=== PATIENT | male | born 1955 | race Caucasian/White ===

== ENCOUNTER 2017-09-20 13:15 | Emergency (ER) | payer BC, SELFPAY ==
--- OUTSIDE RECORDS SUMMARY | 2017-09-20 13:17 | XMS REPORT ---
:1955 Author Organization eClinical[employer] Care Team Providers Name Role Phone Carrillo Eastman Provider Role Unavailable Allergies, Adverse Reactions, Alerts Substance Reaction Event Type N.K.D.A. 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 Problem Chronic hepatitis C without B18.2 Active hepatic coma Problem Psychophysiological insomnia F51.04 Active Assessment PTSD (post-traumatic stress F43.10 Active disorder) Assessment Other chronic pain G89.29 Active Assessment Tobacco abuse counseling Z71.6 Active Assessment Low back pain M54.5 Active Assessment Psychophysiological insomnia F51.04 Active Assessment Mixed hyperlipidemia E78.2 Active Medications Medication Code Code Instructions Start End Date Status Dosage System Date [place] [facility][NOTE 3] 27955524764 5-325 MG Orally Active 1 tablet every 6 hrs as needed Metformin HCl [facility][NOTE 3] 62323536328 1000 MG Orally Active 1 tablet Once a day with a meal Results No Known Results Summary Purpose eClinicalWorks Submission
--- NOTE | 2017-09-20 14:08 | RAD REPORT ---
EXAM DESCRIPTION: CT - Head Brain Wo Cont - 09/20/2017 2:02 pm CLINICAL HISTORY: HEADACHE COMPARISON: No comparisons TECHNIQUE: All CT scans are performed using dose optimization technique as appropriate and may inclu de automated exposure control or mA/KV adjustment according to patient size. FINDINGS: No intracranial hemorrhage, hydrocephalus or extra-axial fluid collection.No areas of brai n edema or evidence of midline shift. The paranasal sinuses and mastoids are clear. The calvarium is intact. IMPRESSION: No acute intracranial abnormality.
[2017-09-20 14:13] LABS: Absolute Monocytes 0.6 K/uL (0.1-1.3); Absolute Neutrophil 5.6 K/uL (1.8-8.0); Eosinophils % 2.9 % (0-4.4); Hematocrit 40.8 % (39.6-49.0); Lymphocytes % 31.9 % (15.3-44.8); MCH 31.4 pg (27.0-35.0); MCV 89.2 fL (80-100); MPV 10.4 fL (7.6-11.3); Monocytes % 6.1 % (3.3-12.3); RBC Red Blood Cell Count 4.57 M/uL (4.33-5.43)
[2017-09-20 14:15] LABS: Protime INR 0.87
--- NOTE | 2017-09-20 14:33 | RAD REPORT ---
EXAM DESCRIPTION: RAD - Chest Single View - 09/20/2017 2:27 pm CLINICAL HISTORY: CHEST PAIN Chest pain. COMPARISON: No comparisons FINDINGS: Portable technique limits examination quality. The lungs are grossly clear. The heart is normal in size. No displaced fractures. IMPRESSION: No acute intrathoracic process suspected.
[2017-09-20] MEDS ORDERED: ACETAMINOPHEN 500 MG TAB ONE (15:28)
[2017-09-20 16:07] LABS: Albumin 3.9 g/dL (3.2-5.5); Bilirubin Direct 0.1 mg/dL (0-0.2); Bilirubin Total 0.3 mg/dL (0.3-1.2); CKMB Creatine Kinase MB 1.8 ng/ml (0.3-4.0); Magnesium 1.5 mg/dL (1.8-2.5); Protein, Total 7.4 g/dL (6.0-8.3)
[2017-09-20 16:14] LABS: Urine Blood NEGATIVE (NEG); Urine Glucose TRACE (NEG); Urine Protein NEGATIVE (NEG); Urine Specific Gravity >1.030 (1.005-1.030)
[2017-09-20] MEDS ORDERED: MAGNESIUM SULFATE 1 gm IVPB 1 GM/100 ML BAG IV ONE (16:32)
[2017-09-20] MEDS ORDERED: NA CHLORIDE 0.9% 1,000 ML ONE (16:39)
--- NOTE | 2017-09-20 19:14 | ER ---
Nurse's Notes [facility] Name: Art Anand Age: 62 yrs Sex: Male : 1955 Arrival Date: 09/20/2017 Time: 13:18 Bed 2 Private MD: Diagnosis: Chest pain, unspecified;Headache;Hyperglycemia, unspecified Presentation: 09/20 13:27 Presenting complaint: Patient states: arrived by pv. c/o of elevated BS- 560 and CP rk2 with SOB off and on today. Denies CP \\T\\ this time. Pt. also c/o nausea and diarrhea. Transition of care: patient was not received from another setting of care. Onset of symptoms was September 20, 2017. Risk Assessment: Do you want to hurt yourself or someone else? Patient reports no desire to harm self or others. Initial Sepsis Screen: Does the patient meet any 2 criteria? No. Patient's initial sepsis screen is negative. Does the patient have a suspected source of infection? No. Patient's initial sepsis screen is negative. Care prior to arrival: None. 13:27 Method Of Arrival: Ambulatory rk2 13:27 Acuity: CAN 3 rk2 Triage Assessment: 13:30 General: Appears in no apparent distress. well groomed, well developed, well nourished, rk2 Behavior is calm, cooperative. Historical: - Allergies: 13:30 No Known Allergies; rk2 - PMHx: 13:30 Diabetes - NIDDM; hep c; rk2 - Immunization history:: Adult Immunizations unknown. - Social history:: Smoking status: Patient uses tobacco products, denies chronic smoking, but will smoke occasionally. - Ebola Screening: : Patient negative for fever greater than or equal to 101.5 degrees Fahrenheit, and additional compatible Ebola Virus Disease symptoms. Screenin:40 Abuse screen: Denies threats or abuse. Denies injuries from another. Nutritional sg screening: No deficits noted. Tuberculosis screening: No symptoms or risk factors identified. Never had TB. Fall Risk None identified. Assessment: 13:40 General: Appears in no apparent distress. comfortable, well groomed, well developed, sg well nourished, Behavior is calm, cooperative, appropriate for age. Pain: Complains of pain in head, chest and left arm Pain does not radiate. Quality of pain is described as aching. Neuro: Level of Consciousness is awake, alert, obeys commands, Oriented to person, place, time, situation, Cmo are equal bilaterally Moves all extremities. Gait is steady, Speech is normal, Facial symmetry appears normal, Pupils are PERRLA. Neuro: Reports headache in entire frontal area, photophobia since 0900. Cardiovascular: Heart tones S1 S2 present Capillary refill is brisk in bilateral fingers Patient's skin is warm and dry. Chest pain is described as vague, is located in anterior chest wall radiates to left arm(s). Respiratory: Airway is patent Respiratory effort is even, unlabored, Respiratory pattern is regular, symmetrical, Breath sounds are clear bilaterally. GI: Abdomen is round non-distended, obese, Bowel sounds present X 4 quads. Abd is soft and non tender X 4 quads. Reports nausea. : No signs and/or symptoms were reported regarding the genitourinary system. EENT: No signs and/or symptoms were reported regarding the EENT system. Derm: Skin is pink, warm \\T\\ dry. Musculoskeletal: No signs and/or symptoms reported regarding the musculoskeletal system. 14:30 Reassessment: Patient appears in no apparent distress at this time. Patient and/or sg family updated on plan of care and expected duration. Pain level reassessed. Patient is alert, oriented x 3, equal unlabored respirations, skin warm/dry/pink. Patient states symptoms have not improved. 15:30 Reassessment: Patient appears in no apparent distress at this time. Patient and/or sg family updated on plan of care and expected duration. Pain level reassessed. Patient is alert, oriented x 3, equal unlabored respirations, skin warm/dry/pink. pt reports headache, a 6/10 on a pain scale, pt awaiting new orders at this time, will continue to monitor Patient states symptoms have not improved. 16:30 Reassessment: Patient appears in no apparent distress at this time. Patient and/or sg family updated on plan of care and expected duration. Pain level reassessed. Patient is alert, oriented x 3, equal unlabored respirations, skin warm/dry/pink. Patient states symptoms have not improved. 17:30 Reassessment: Patient appears in no apparent distress at this time. Patient and/or sg family updated on plan of care and expected duration. Pain level reassessed. Patient is alert, oriented x 3, equal unlabored respirations, skin warm/dry/pink. pt reports continue to have a headache, will continue to monitor Patient states symptoms have not improved. 18:30 Reassessment: Patient appears in no apparent distress at this time. Patient and/or sg family updated on plan of care and expected duration. Pain level reassessed. Patient is alert, oriented x 3, equal unlabored respirations, skin warm/dry/pink. 18:30 Reassessment: pt to be d/c to home, Nasim PERSONNEL PSYCHOLOGIST ordered a " migraine cocktail." prior sg to dc to home. Vital Signs: 13:30 BP 164 / 65; Pulse 71; Resp 17; Temp 98.0; Pulse Ox 97% ; Weight 112.49 kg; rk2 14:30 BP 136 / 84; Pulse 66; Resp 20; Pulse Ox 98% on R/A; sg 16:00 BP 133 / 81; Pulse 58; Resp 16; Pulse Ox 98% on R/A; Pain 6/10; sg 17:00 BP 116 / 77; Pulse 96 MON; Resp 16 S; Temp 98.0; Pulse Ox 95% on R/A; Pain 4/10; sg 18:00 BP 116 / 75; Pulse 61 MON; Resp 18; Pulse Ox 100% on R/A; sg ED Course: 13:18 Patient arrived in ED. as 13:28 [facility] pm1 13:28 Duncan Meek MD is Attending Physician. pm1 13:29 Triage completed. rk2 13:40 Patient has correct armband on for positive identification. Bed in low position. Call sg light in reach. Side rails up X2. printing film stripper on. Pulse ox on. NIBP on. Warm blanket given. Head of bed elevated. 13:40 Arm band placed on. sg 13:55 Missed attempt(s): 22 gauge in right wrist. Bleeding controlled, band aid applied, dh3 catheter tip intact. 13:58 Juan Miguel Ibarra, RN is Primary Nurse. sg 13:58 Initial lab(s) drawn, by me, sent to lab. Missed attempt(s): 22 gauge in right hand. sg Bleeding controlled, band aid applied, catheter tip intact. 14:00 CT completed. Patient moved to CT via stretcher. Patient moved back from CT. cw1 14:01 CT Head Brain wo Cont In Process Unspecified. EDMS 14:27 X-ray completed. Portable x-ray completed in exam room. Patient tolerated procedure kp1 well. 14:28 XRAY Chest (1 view) In Process Unspecified. EDMS 14:52 Inserted saline lock: 24 gauge in right antecubital area, using aseptic technique. ss Blood collected. 18:20 No provider procedures requiring assistance completed. Repeat lab(s) drawn. by dc, sent sg to lab. Patient maintains SpO2 saturation greater than 95% on room air. 19:17 IV discontinued, intact, bleeding controlled, No redness/swelling at site. Pressure sg dressing applied. Administered Medications: 15:43 Drug: Tylenol 500 mg Route: PO; sg 16:30 Follow up: Response: No adverse reaction; Pain is unchanged, physician notified sg 16:34 Drug: Magnesium Sulfate 1 grams Route: IVPB; Infused Over: 1 hrs; Site: right sg antecubital; 19:31 Follow up: Response: No adverse reaction; IV Status: Completed infusion kr2 16:40 Drug: NS 0.9% 1000 ml Route: IV; Rate: 1000 ml; Site: right antecubital; sg 19:30 Follow up: Response: No adverse reaction; IV Status: Completed infusion kr2 19:29 Drug: TORadol 30 mg Route: IVP; Site: right antecubital; kr2 19:35 Follow up: Response: No adverse reaction kr2 19:30 Drug: Benadryl 25 mg Route: IVP; Site: right antecubital; kr2 19:35 Follow up: Response: No adverse reaction kr2 19:30 Drug: Reglan 10 mg Route: IVP; Site: right antecubital; kr2 19:35 Follow up: Response: No adverse reaction kr2 Point of Care Testing: Blood Glucose: 13:36 Blood Glucose: 190 mg/dL; sg Ranges: Outcome: 19:14 Discharge ordered by MD. pm1 19:34 Discharged to home ambulatory, with family. kr2 19:34 Condition: good 19:34 Discharge instructions given to patient, family, Instructed on discharge instructions, follow up and referral plans. Demonstrated understanding of instructions, follow-up care, medications. 19:36 Patient left the ED. kr2 Signatures: Dispatcher [employer] EDJuan Miguel Wong RN RN Brina Paz Shelby, RN RN Veronique Hall cw1 Jerry Moraes, VARNISH MAKER VARNISH MAKER pm1 MilesAubree hahn kp1 Alina Ventura 3 Shayy Solis RN RN kr2 Carie Bai RN RN rk2 Corrections: (The following items were deleted from the chart) 14:02 13:30 BP 164 / ???; Pulse 65bpm; Resp 71bpm; Pulse Ox 97%; Temp 19F; 112.49 kg; rk2 rk2 19:19 19:17 Discharged to home ambulatory, with family, sg 19:19 19:17 Condition: good sg 19:19 19:17 Discharge instructions given to patient, Instructed on discharge instructions, sg follow up and referral plans. safety practices, Demonstrated understanding of instructions, follow-up care, sg
--- NOTE | 2017-09-20 19:14 | EDPHYS ---
Physician Documentation [facility] Name: Art Anand Age: 62 yrs Sex: Male : 1955 Arrival Date: 09/20/2017 Time: 13:18 Bed 2 Private MD: ED Physician Duncan Meek HPI: 09/20 15:00 This 62 yrs old Male presents to ER via Ambulatory with complaints of Chest pm1 Pain, Headache, High Blood Sugar. 15:00 Patient with complaints of chest pain, headache, and hyperglycemia. Patient with onset pm1 of chest pain and headache at 0900 this AM. Patient reports that headache is his current main complaint. It has been constant since 0900. Patient with complaints of chest pain that lasts for 1-2 seconds that comes and goes. Patient without any chest pain now. Patient had high blood sugar yesterday and today and he treats his diabetes with metformin. He had a high blood sugar level yesterday that was in the 500 range so he took extra of his metformin. Patient normally takes 1000 mg BID. Patient took extra 1000 mg yesterday and today. Historical: - Allergies: 13:30 No Known Allergies; rk2 - PMHx: 13:30 Diabetes - NIDDM; hep c; rk2 - Immunization history:: Adult Immunizations unknown. - Social history:: Smoking status: Patient uses tobacco products, denies chronic smoking, but will smoke occasionally. - Ebola Screening: : Patient negative for fever greater than or equal to 101.5 degrees Fahrenheit, and additional compatible Ebola Virus Disease symptoms. ROS: 15:00 Constitutional: Negative for fever, chills, and weight loss, Eyes: Negative for injury, pm1 pain, redness, and discharge, ENT: Negative for injury, pain, and discharge, Neck: Negative for injury, pain, and swelling, Respiratory: Negative for shortness of breath, cough, wheezing, and pleuritic chest pain. 15:00 Abdomen/GI: Negative for abdominal pain, nausea, vomiting, diarrhea, and constipation, Back: Negative for injury and pain, : Negative for injury, bleeding, discharge, and swelling, MS/Extremity: Negative for injury and deformity, Skin: Negative for injury, rash, and discoloration. 15:00 Cardiovascular: Positive for chest pain, Negative for edema, orthopnea, palpitations. 15:00 Neuro: Positive for headache, Negative for altered mental status, dizziness, numbness, seizure activity, tingling, visual changes, weakness. Exam: 15:00 Constitutional: This is a well developed, well nourished patient who is awake, alert, pm1 and in no acute distress. Head/Face: Normocephalic, atraumatic. Eyes: Pupils equal round and reactive to light, extra-ocular motions intact. Lids and lashes normal. Conjunctiva and sclera are non-icteric and not injected. Cornea within normal limits. Periorbital areas with no swelling, redness, or edema. ENT: Nares patent. No nasal discharge, no septal abnormalities noted. Tympanic membranes are normal and external auditory canals are clear. Oropharynx with no redness, swelling, or masses, exudates, or evidence of obstruction, uvula midline. Mucous membranes moist. Neck: Trachea midline, no thyromegaly or masses palpated, and no cervical lymphadenopathy. Supple, full range of motion without nuchal rigidity, or vertebral point tenderness. No Meningismus. Chest/axilla: Normal chest wall appearance and motion. Nontender with no deformity. No lesions are appreciated. Cardiovascular: Regular rate and rhythm with a normal S1 and S2. No gallops, murmurs, or rubs. Normal PMI, no JVD. No pulse deficits. Respiratory: Lungs have equal breath sounds bilaterally, clear to auscultation and percussion. No rales, rhonchi or wheezes noted. No increased work of breathing, no retractions or nasal flaring. Abdomen/GI: Soft, non-tender, with normal bowel sounds. No distension or tympany. No guarding or rebound. No evidence of tenderness throughout. Back: No spinal tenderness. No costovertebral tenderness. Full range of motion. Skin: Warm, dry with normal turgor. Normal color with no rashes, no lesions, and no evidence of cellulitis. MS/ Extremity: Pulses equal, no cyanosis. Neurovascular intact. Full, normal range of motion. 15:00 Neuro: Orientation: is normal, Cranial nerves: CN II- XII are normal as tested, Motor: moves all fours, strength is normal, strength is 5/5 in all extremities, Sensation: is normal, no obvious gross deficits, Gait: is steady, at a normal pace, without difficulty. Vital Signs: 13:30 BP 164 / 65; Pulse 71; Resp 17; Temp 98.0; Pulse Ox 97% ; Weight 112.49 kg; rk2 14:30 BP 136 / 84; Pulse 66; Resp 20; Pulse Ox 98% on R/A; sg 16:00 BP 133 / 81; Pulse 58; Resp 16; Pulse Ox 98% on R/A; Pain 6/10; sg 17:00 BP 116 / 77; Pulse 96 MON; Resp 16 S; Temp 98.0; Pulse Ox 95% on R/A; Pain 4/10; sg 18:00 BP 116 / 75; Pulse 61 MON; Resp 18; Pulse Ox 100% on R/A; sg MDM: 13:28 Patient medically screened. pm1 19:13 Data reviewed: vital signs. Data interpreted: Pulse oximetry: on room air is 100 %. pm1 Interpretation: normal. Counseling: I had a detailed discussion with the patient and/or guardian regarding: the historical points, exam findings, and any diagnostic results supporting the discharge/admit diagnosis, lab results, radiology results, the need for outpatient follow up, to return to the emergency department if symptoms worsen or persist or if there are any questions or concerns that arise at home. 09/20 13:37 Order name: Basic Metabolic Panel; Complete Time: 16:25 pm09/20 13:37 Order name: BNP; Complete Time: 15:02 pm09/20 13:37 Order name: CBC with Diff; Complete Time: 14:16 pm09/20 13:37 Order name: Ckmb; Complete Time: 16:25 pm09/20 13:37 Order name: CPK; Complete Time: 16:25 pm09/20 13:37 Order name: LFT's; Complete Time: 16:25 pm09/20 13:37 Order name: Magnesium; Complete Time: 16:25 pm09/20 13:37 Order name: PT-INR; Complete Time: 14:20 pm09/20 13:37 Order name: Ptt, Activated; Complete Time: 14:20 pm09/20 13:37 Order name: Troponin (emerg Dept Use Only); Complete Time: 14:41 pm09/20 13:37 Order name: XRAY Chest (1 view); Complete Time: 14:41 pm09/20 13:37 Order name: CT Head Brain wo Cont; Complete Time: 14:16 pm1 09/20 15:49 Order name: Urine Dipstick--Ancillary (enter results); Complete Time: 16:25 em1 09/20 17:52 Order name: Troponin (emerg Dept Use Only); Complete Time: 18:58 pm1 09/20 13:37 Order name: EKG; Complete Time: 13:37 pm1 09/20 13:37 Order name: Cardiac monitoring; Complete Time: 14:52 pm1 09/20 13:37 Order name: EKG - Nurse/Tech; Complete Time: 14:52 pm1 09/20 13:37 Order name: IV Saline Lock; Complete Time: 14:52 pm1 09/20 13:37 Order name: Labs collected and sent; Complete Time: 14:52 pm1 09/20 13:37 Order name: O2 Per Protocol; Complete Time: 14:52 pm1 09/20 13:37 Order name: O2 Sat Monitoring; Complete Time: 14:52 pm1 09/20 13:37 Order name: Urine Dipstick-Ancillary (obtain specimen); Complete Time: 15:36 pm1 Administered Medications: 15:43 Drug: Tylenol 500 mg Route: PO; sg 16:30 Follow up: Response: No adverse reaction; Pain is unchanged, physician notified sg 16:34 Drug: Magnesium Sulfate 1 grams Route: IVPB; Infused Over: 1 hrs; Site: right sg antecubital; 19:31 Follow up: Response: No adverse reaction; IV Status: Completed infusion kr2 16:40 Drug: NS 0.9% 1000 ml Route: IV; Rate: 1000 ml; Site: right antecubital; sg 19:30 Follow up: Response: No adverse reaction; IV Status: Completed infusion kr2 19:29 Drug: TORadol 30 mg Route: IVP; Site: right antecubital; kr2 19:35 Follow up: Response: No adverse reaction kr2 19:30 Drug: Benadryl 25 mg Route: IVP; Site: right antecubital; kr2 19:35 Follow up: Response: No adverse reaction kr2 19:30 Drug: Reglan 10 mg Route: IVP; Site: right antecubital; kr2 19:35 Follow up: Response: No adverse reaction kr2 Point of Care Testing: Blood Glucose: 13:36 Blood Glucose: 190 mg/dL; sg Ranges: Critical Glucose Levels:Adult <50 mg/dl or >400 mg/dl <40 mg/dl or >180 mg/dl Disposition: 09/21 13:05 Co-signature as Attending Physician, Duncan Meek MD. Disposition: 09/20/17 19:14 Discharged to Home. Impression: Chest pain, unspecified, Headache, Hyperglycemia, unspecified. - Condition is Stable. - Discharge Instructions: Nonspecific Chest Pain, General Headache Without Cause. - Medication Reconciliation Form, Thank You Letter form. - Follow up: Emergency Department; When: As needed; Reason: Worsening of condition. Follow up: Private Physician; When: 2 - 3 days; Reason: Recheck today's complaints, Continuance of care, Re-evaluation by your physician. - Problem is new. - Symptoms have improved. Signatures: Dispatcher [employer] EDMS Juan Miguel Ibarra RN RN sg Jerry Moraes, RECEIVER SETTER RECEIVER SETTER pm1 Duncan Meek MD MD Shayy Solis RN RN kr2 Carie Bai RN RN rk2 Corrections: (The following items were deleted from the chart) 09/20 19:14 19:14 09/20/2017 19:14 Discharged to Home. Impression: Chest pain, unspecified. pm1 Condition is Stable. Forms are Medication Reconciliation Form, Thank You Letter, Antibiotic Education, Prescription Opioid Use. Follow up: Emergency Department; When: As needed; Reason: Worsening of condition. Follow up: Private Physician; When: 2 - 3 days; Reason: Recheck today's complaints, Continuance of care, Re-evaluation by your physician. Problem is new. Symptoms have improved. pm1 19:20 19:14 09/20/2017 19:14 Discharged to Home. Impression: Chest pain, unspecified; pm1 Headache. Condition is Stable. Discharge Instructions: Nonspecific Chest Pain, General Headache Without Cause. Forms are Medication Reconciliation Form, Thank You Letter. Follow up: Emergency Department; When: As needed; Reason: Worsening of condition. Follow up: Private Physician; When: 2 - 3 days; Reason: Recheck today's complaints, Continuance of care, Re-evaluation by your physician. Problem is new. Symptoms have improved. pm1 19:36 19:20 09/20/2017 19:14 Discharged to Home. Impression: Chest pain, unspecified; kr2 Headache; Hyperglycemia, unspecified. Condition is Stable. Discharge Instructions: Nonspecific Chest Pain, General Headache Without Cause. Forms are Medication Reconciliation Form, Thank You Letter. Follow up: Emergency Department; When: As needed; Reason: Worsening of condition. Follow up: Private Physician; When: 2 - 3 days; Reason: Recheck today's complaints, Continuance of care, Re-evaluation by your physician. Problem is new. Symptoms have improved. pm1
[2017-09-20] MEDS ORDERED: KETOROLAC 30 MG/ML INJ ONE (19:26)
[2017-09-20] MEDS ORDERED: METOCLOPRAMIDE 10 MG/2mL INJ ONE (19:26)
[2017-09-20] MEDS ORDERED: DIPHENHYDRAMINE 50 MG/ML VIAL ONE (19:26)
--- NOTE | 2017-09-21 06:14 | EKG ---
Test Date: 2017-09-20 Test Time: 13:32:26 [employer]: SWG MEASUREMENT RESULTS: Intervals: Rate: 69 MA: 190 QRSD: 154 QT: 434 QTc: 465 [place]: P: 56 MA: 190 QRS: -15 T: 36 INTERPRETIVE STATEMENTS: Normal sinus rhythm Right bundle branch block Abnormal ECG No previous ECG available for comparison Electronically Signed On 09-21-17 06:14:12 CDT by Cheng Valladares
== END 2017-09-20 19:36 | disposition home or self-care (01) ==
LOC: ER 13:15
DX: R51 Headache (principal); E11.65 Type 2 diabetes mellitus with hyperglycemia; B19.20 Unspecified viral hepatitis C without hepatic coma; Z72.0 Tobacco use
CPT/HCPCS: 36415; 70450; 71045; 80048; 80076; 81003; 82550; 82553; 82962; 83735; 83880; 84484; 85025; 85610; 85730; 93005; 96361; 96365; 96366; 96375; 99285; J2765; J3475; J7030

== ENCOUNTER 2017-10-19 17:18 | Emergency (ER) | payer BC ==
--- OUTSIDE RECORDS SUMMARY | 2017-10-19 17:21 | XMS REPORT | Continuity of Care Document ---
:1955 Author Organization Interface Problems Problem Status Onset Classification Date Comments Source Date Reported OTHER Active 04/13/19 The 17 [place] HYPERGLYCEMIA, Active 04/13/19 The DEHYDRATION [address] [place] [address] HIGH BLOOD SUGAR Active 02/05/20 The 16 [place] Discharge 02/05/20 02/08/2016 The Diagnosis: [address] [place] [address] Hyperglycemia Diabetes Resolved Problem 04/17/2016 Eunice Carrier of Resolved Problem 04/17/2016 The hepatitis B [place] HYPERGLYCEMIA, Active The UNSPECIFIED [place] DEHYDRATION Active Eunice Medications Medication Details Route Status Patient Ordering Order Source Instructions Provider Date Metformin 500 mg=1 tab, Active The hydrochloride PO, BID, # 28 2016 [place] 500 MG Oral tab, 0 Tablet Refill(s) 3 ML insulin 14 unit, SUB-Q, Active The detemir 100 BID, # 3 mL, 0 2016 [place] UNT/ML Prefilled Refill(s) Syringe [Levemir] tramadol 50 mg=1 tab, Active The hydrochloride 50 PO, Q6H, PRN 2016 [place] MG Oral Tablet Pain Score 4-6, X 3 day, # 12 tab, 0 Refill(s) potassium 40 mEq, 2 tab, Inactive The chloride Route: PO, Drug 2016 [place] form: ERTAB, ONCE, Dosing Weight 105.455, kg, Start date: 04/14/16 13:11:00 [employer], Stop date: 04/14/16 13:11:00 CSTNotes: (Same as: K-Dur 20) "Do Not Crush" With food and full glass of water Dilaudid 0.5 mg, 0.25 Inactive The mL, Route: IVP, 2016 [place] Drug form: INJ, Q4H, Dosing Weight 105.455, kg, PRN Pain Score 7-10, Start date: 04/14/16 12:55:00 [employer], Duration: 30 day, Stop date: 05/14/16 12:54:00 CSTNotes: Same as Dilaudid Pneumovax 23 0.5 mL, Route: Inactive The IM, Drug Form: 2016lands INJ, Daily, Start date: 04/14/16 10:06:00 [employer], Duration: 1 doses or times, Stop date: 04/14/16 10:06:00 CSTNotes: (Same as: Pneumovax 23) Refrigerate influenza virus 0.5 mL, Route: Inactive The vaccine, IM, Drug Form: 2016 [place] inactivated SUSP, Daily, Start date: 04/14/16 10:06:00 [employer], Duration: 1 doses or times, Stop date: 04/14/16 10:06:00 CSTNotes: (Same as: Fluzone Quadrivalent, Fluarix Quadrivalent) For 3 years of age and older (0.5 mL IM) Shake well before use pneumococcal 0.5 mL, Route: Inactive The capsular IM, Drug Form: 2016 [place] polysaccharide INJ, Daily, type 1 vaccine / Start date: pneumococcal 04/14/16 capsular 9:00:00 [employer], polysaccharide Duration: 1 type 10A vaccine doses or times, / pneumococcal Stop date: capsular 04/14/16 polysaccharide 9:00:00 type 11A vaccine CSTNotes: (Same / pneumococcal as: Pneumovax capsular 23) polysaccharide Refrigerate type 12F vaccine / pneumococcal capsular polysacchar influenza virus 0.5 mL, Route: Inactive The vaccine, IM, Drug Form: 2016 [place] inactivated SUSP, Daily, Start date: 04/14/16 9:00:00 [employer], Duration: 1 doses or times, Stop date: 04/14/16 9:00:00 CSTNotes: (Same as: Fluzone Quadrivalent, Fluarix Quadrivalent) For 3 years of age and older (0.5 mL IM) Shake well before use potassium 40 mEq, 2 tab, Inactive The chloride Route: PO, Drug 2016 [place] form: ERTAB, ONCE, Dosing Weight 105.455, kg, Start date: 04/14/16 6:00:00 [employer], Stop date: 04/14/16 6:00:00 CSTNotes: (Same as: K-Dur 20) "Do Not Crush" With food and full glass of water Ofirmev 1,000 mg, 100 No Longer The mL, Route: IV, Active 2016 [place] Drug form: INJ, ONCE, PRN Pain Score 4-6, Start date: 04/13/16 23:29:00 CSTNotes: Infuse over 15 minutes Do not exceed 4gm/day of acetaminophen MEDICATION WASTE Product Size: 1000 mg Product Wasted: ___ mg NovoLOG FlexPen 14 unit, 0.14 No Longer The mL, Route: Active 2016 [facility] Drug form: SOLN, ONCE, Dosing Weight 105.455, kg, Start date: 04/13/16 22:00:00 [employer], Stop date: 04/13/16 22:00:00 CSTNotes: Roll in palms of hands gently; Do not shake vigorously. (Same as: NovoLOG) "single patient use only" WASTE: F/P - Black; E - Municipal Trash Bin Stable for 28 days at room temperature. Expires in days from D ate Ofirmev 1,000 mg, Inactive The Route: IVP, 2016lands ONCE, Dosing Weight 105.455, kg, PRN Pain Score 4-6, Start date: 04/13/16 21:51:00 [employer] Lorazepam 0.5 mg, 1 tab, No Longer The Route: PO, Drug Active 2016 [place] form: TAB, ONCE, Dosing Weight 105.455, kg, PRN as needed for anxiety, Start date: 04/13/16 21:44:00 CSTNotes: (Same as: Ativan) Insulin, Aspart, 2 unit, 0.02 No Longer The Human mL, Route: Active 2016 [place] BLOVES-, Drug form: SOLN, Bedtime, Dosing Weight 105.455, kg, PRN Blood Glucose Results, Start date: 04/13/16 21:05:00 [employer], Duration: 30 day, Stop date: 05/13/16 21:04:00 CSTNotes: Roll in palms of hands gently; Do not shake vigorously. (Same as: NovoLOG) "single patient use only" WASTE: F/P - Black; E - Municipal Trash Bin Stable for 28 days at room temperature. Expires in days from D ate Dextrose 50% 12.5 gm, 25 mL, No Longer The Syringe Route: IVP, Active 2016 [place] Drug Form: INJ, Dosing Weight 105.455, kg, PRN, PRN Blood Glucose Results, Start date: 04/13/16 21:05:00 [employer], Duration: 30 day, Stop date: 05/13/16 21:04:00 [employer] Glucagon 1 mg, Route: No Longer The IM, Drug form: Active 2016 [place] PDR/INJ, PRN, Dosing Weight 105.455, kg, PRN Blood Glucose Results, Start date: 04/13/16 21:05:00 [employer], Duration: 30 day, Stop date: 05/13/16 21:04:00 [employer] Acetaminophen 650 mg, 2 tab, No Longer The Route: PO, Drug Active 2016 [place] form: TAB, Q6H, Dosing Weight 105.455, kg, PRN Pain 1-3/Temp > 100.4 F, Start date: 04/13/16 21:04:00 [employer], Duration: 30 day, Stop date: 05/13/16 21:03:00 CSTNotes: Do not exceed 4 gm/day. (Same as: Tylenol) Tramadol 50 mg, 1 tab, No Longer The Route: PO, Drug Active 2016 [place] form: TAB, Q4H, Dosing Weight 105.455, kg, PRN Pain Score 4-6, Start date: 04/13/16 21:04:00 [employer], Duration: 30 day, Stop date: 05/13/16 21:03:00 CSTNotes: Not to exceed 400mg/day. (Same As: Ultram) insulin detemir 10 unit, 0.1 No Longer The mL, Route: Active 2016 [place] SUB-Q, Drug form: INJ, Q12H, Dosing Weight 105.455, kg, Start date: 04/13/16 21:00:00 [employer], Duration: 30 day, Stop date: 05/13/16 9:00:00 CSTNotes: Same as Levemir Do not hold insulin without contacting prescriber WASTE: F/P - Black; E - Municipal Trash Bin "single patient use only" sodium chloride 1,000 mL, Rate: No Longer The 0.9% 1000 ml INJ 250 ml/hr, Active 2016 [place] 1,000 mL Infuse over: 4 hr, Route: IV, Dosing Weight 105.455 kg, Total Volume: 1,000, Start date: 04/13/16 19:39:00 [employer], Duration: 30 day, Stop date: 05/13/16 19:38:00 [employer] Insulin, Aspart, 6 unit, 0.06 No Longer The Human mL, Route: Active 2016 [place] SUB-Q, Drug form: SOLN, TID-Before Meals, Dosing Weight 105.455, kg, PRN Blood Glucose Results, Start date: 04/13/16 19:38:00 [employer], Duration: 30 day, Stop date: 05/13/16 19:37:00 CSTNotes: Roll in palms of hands gently; Do not shake vigorously. (Same as: NovoLOG) "single patient use only" WASTE: F/P - Black; E - Municipal Trash Bin Stable for 28 days at room temperature. Expires in days from D ate Glucagon 1 mg, Route: No Longer The IM, Drug form: Active 2016 [place] PDR/INJ, PRN, Dosing Weight 105.455, kg, PRN Blood Glucose Results, Start date: 04/13/16 19:38:00 [employer], Duration: 30 day, Stop date: 05/13/16 19:37:00 [employer] Dextrose 50% 25 gm, 50 mL, No Longer The Syringe Route: IVP, Active 2016 [place] Drug Form: INJ, Dosing Weight 105.455, kg, PRN, PRN Blood Glucose Results, Start date: 04/13/16 19:38:00 [employer], Duration: 30 day, Stop date: 05/13/16 19:37:00 [employer] insulin regular 10 unit, 0.1 Inactive The 100 units/mL mL, Route: 2016 [place] human SUB-Q, Drug recombinant form: SOLN, ONCE, Dosing Weight 105.455, kg, Priority: STAT, Start date: 04/13/16 19:24:00 [employer], Stop date: 04/13/16 19:24:00 CSTNotes: (Same as: Humulin R) Roll in palms of hands gently; Do not shake vigorously. "single patient use only" (Restricted to patients requiring a dose > 60 units) WASTE: F/P - Black; E - Municipal Trash Bin Stable for 28 days at room temperature Expires in days from D ate Sodium Chloride 1,000 mL, Rate: No Longer The 0.154 MEQ/ML 250 ml/hr, Active 2016 [place] Injectable Infuse over: 4 Solution hr, Route: IV, Dosing Weight 105.455 kg, Total Volume: 1,000, Start date: 04/13/16 19:12:00 [employer], Duration: 30 day, Stop date: 05/13/16 19:11:00 [employer] Insulin regular 10 unit, 0.1 Inactive The mL, Route: 2016 [place] SUB-Q, Drug form: INJ, ONCE, Dosing Weight 105.455, kg, Priority: STAT, Start date: 04/13/16 18:50:00 [employer], Stop date: 04/13/16 18:50:00 CSTNotes: (Same as: Humulin R and NovoLIN R) WASTE: F/P - Black; E - Municipal Trash Bin (Do not shake) Ketorolac 30 mg, Route: Inactive The IVP, Drug form: 2016 [place] INJ, ONCE, Dosing Weight 105.455, kg, Priority: STAT, Start date: 04/13/16 18:04:00 [employer], Stop date: 04/13/16 18:04:00 [employer] Acetaminophen 975 mg, Route: Inactive The PO, ONCE, 2016 [place] Dosing Weight 105.455, kg, Priority: STAT, Start date: 04/13/16 18:04:00 [employer], Stop date: 04/13/16 18:04:00 [employer] Compazine 10 mg, Route: Inactive The IV, ONCE, 2016 [place] Dosing Weight 105.455, kg, Start date: 04/13/16 17:23:00 [employer], Stop date: 04/13/16 17:23:00 [employer] Sodium Chloride 1,000 mL, Inactive The 0.154 MEQ/ML Infuse Over: 1 2016 [place] Injectable hr, Route: IV, Solution ONCE, Priority: STAT, Dosing Weight 105.455 kg, Start date: 04/13/16 17:22:00 [employer], Duration: 1 doses or times, Stop date: 04/13/16 17:22:00 [employer] Glucagon 1 mg, Route: No Longer The IM, Drug form: Active 2016 [place] PDR/INJ, PRN, Dosing Weight 105.455, kg, PRN Blood Glucose Results, Start date: 04/13/16 16:16:00 [employer], Duration: 30 day, Stop date: 05/13/16 16:15:00 [employer] Dextrose 50% 25 gm, 50 mL, No Longer The Syringe Route: IVP, Active 2016 [place] Drug Form: INJ, Dosing Weight 105.455, kg, PRN, PRN Blood Glucose Results, Start date: 04/13/16 16:16:00 [employer], Duration: 30 day, Stop date: 05/13/16 16:15:00 [employer] Sodium Chloride 1,000 mL, 1000 Inactive The 0.154 MEQ/ML ml/hr, Infuse 2016 [place] Injectable Over: 1 hr, Solution Route: IV, 1,000, Drug form: INJ, ONCE, Priority: STAT, Dosing Weight 105.455 kg, Start date: 04/13/16 16:16:00 [employer], Duration: 1 doses or times, Stop date: 04/13/16 16:16:00 [employer] Saline Flush 10 mL, Route: No Longer The 0.9% IVP, Drug Form: Active 2016 [place] INJ, Dosing Weight 105.455, kg, PRN, PRN Line Flush, Start date: 04/13/16 16:16:00 [employer], Duration: 30 day, Stop date: 05/13/16 16:15:00 CSTNotes: Same as: BD Posiflush Sterile Sodium Chloride 1,000 mL, 2,000 Inactive The 0.154 MEQ/ML ml/hr, Infuse 2015 [place] Injectable Over: 30 Solution minutes, Route: IV, 1,000, Drug form: INJ, ONCE, Priority: STAT, Dosing Weight 112.273 kg, Start date: 02/05/16 16:25:00 CDT, Duration: 1 doses or times, Stop date: 02/05/16 16:25:00 CDT Insulin regular 10 unit, 0.1 Inactive The mL, Route: 2015 [place] SUB-Q, Drug form: INJ, ONCE, Dosing Weight 112.273, kg, Priority: STAT, Start date: 02/05/16 16:25:00 CDT, Stop date: 02/05/16 16:25:00 CDTNotes: (Same as: Humulin R and NovoLIN R) WASTE: F/P - Black; E - Municipal Trash Bin (Do not shake) Dextrose 50% 25 gm, 50 mL, Inactive The Syringe Route: IVP, 2015 [place] Drug Form: INJ, Dosing Weight 113.636, kg, PRN, PRN Blood Glucose Results, Start date: 02/05/16 11:12:00 CDT, Duration: 30 day, Stop date: 03/06/16 10:11:00 [employer] Glucagon 1 mg, Route: Inactive The IM, Drug form: 2015 [place] PDR/INJ, PRN, Dosing Weight 113.636, kg, PRN Blood Glucose Results, Start date: 02/05/16 11:12:00 CDT, Duration: 30 day, Stop date: 03/06/16 10:11:00 [employer] Saline Flush 10 mL, Route: Inactive The 0.9% IVP, Drug Form: 2015 [place] INJ, Dosing Weight 113.636, kg, PRN, PRN Line Flush, Start date: 02/05/16 11:12:00 CDT, Duration: 30 day, Stop date: 03/06/16 10:11:00 CSTNotes: preservative free. Sodium Chloride 1,000 mL, 2000 Inactive The 0.154 MEQ/ML ml/hr, Infuse [address] [place] [address] Injectable Over: 30 Solution minutes, Route: IV, 1,000, Drug form: INJ, ONCE, Priority: STAT, Dosing Weight 113.636 kg, Start date: 02/05/16 11:12:00 CDT, Duration: 1 doses or times, Stop date: 02/05/16 11:12:00 CDT Allergies, Adverse Reactions, Alerts Substance Category Reaction Severity Reaction Status Date Comments Source type Reported NKDA Assertion Drug Active The allergy [place] Immunizations Immunization Date Site Status Last Comments Source Given Updated pneumococcal Left completed Paulo The 23-valent 7 Deltoid [place] vaccine influenza virus Right completed Paulo The vaccine, 7 Deltoid [place] inactivated pneumococcal Not Given The 23-valent 7 [place] vaccine influenza virus Not Given The vaccine, 7 [place] inactivated Results Order Name Results Value Reference Date Interpretation Comments Source Range CARDIAC Troponin-I null 0.00 - 04/14 The ENZYMES 0.40 [place] CHEM PANEL eGFR 105 04/14 Result Comment: The eGFR is calculated using the CKD-EPI formula. In most young, healthy individuals the eGFR will be >90 mL/ min/1.73m2. The eGFR declines with age. An eGFR of 60-89 may be normal in The mL/min/1.7 some populations, particularly the elderly, for whom the CKD-EPI formula has not been extensively validated. Use of the eGFR is not recommended in the following populations: [address] Individuals with unstable creatinine concentrations, including patients and those with serious co-morbid conditions. Patients with extremes in muscle mass or diet. The data above are obtained from the National Kidney Disease Education Program (NKDEP) which additionally recommends that when the eGFR is used in patients with extremes of body mass index for purposes of drug dosing, the eGFR should be multiplied by the estimated BMI. CHEM PANEL Creatinine 0.68 mg/dL 0.50 - 04/14 The Lvl 1.40 [place] CHEM PANEL Sodium Lvl 139 meq/L 135 - 145 04/14 [place] CHEM PANEL Potassium 3.4 meq/L 3.5 - 5.1 04/14 The Lvl [place] CHEM PANEL Chloride Lvl 106 meq/L 95 - 109 04/14 [place] CHEM PANEL CO2 26 meq/L 24 - 32 04/14 [place] CHEM PANEL Calcium Lvl 7.8 mg/dL 8.5 - 10.5 04/14 [place] CHEM PANEL AGAP 10.4 meq/L 10.0 - 04/14 The 20.0 [place] CHEM PANEL Glucose Lvl 199 mg/dL 70 - 99 04/14 Result Comment: [place] reviewed all results 04/14/2016 01:50 sv CHEM PANEL BUN 11 mg/dL 7 - 22 04/14 The [place] CHEM PANEL Phosphorus 3.0 mg/dL 2.5 - 4.5 04/14 The [place] CHEM PANEL Magnesium 1.8 mg/dL 1.8 - 2.4 04/14 The Lvl [place] HEMATOLOGY Eosinophils 3.0 % 0.0 - 4.0 04/14 The [place] HEMATOLOGY Lymphocytes 43.4 % 20.0 - 04/14 The 40.0 [place] HEMATOLOGY Monocytes 6.0 % 2.0 - 12.0 04/14 The [place] HEMATOLOGY Basophils 1.6 % 0.0 - 1.0 04/14 The [place] HEMATOLOGY Monocytes # 0.5 K/CMM 0.0 - 0.8 04/14 The [place] HEMATOLOGY Segs-Bands # 3.5 K/CMM 1.5 - 8.1 04/14 The [place] HEMATOLOGY Lymphocytes 3.3 K/CMM 1.0 - 5.5 04/14 The [place] HEMATOLOGY Basophils # 0.1 K/CMM 0.0 - 0.2 04/14 The [place] HEMATOLOGY Eosinophils 0.2 K/CMM 0.0 - 0.5 04/14 The [place] HEMATOLOGY RBC Morph Normal 04/14 [place] (04/14/16 1:17 AM) HEMATOLOGY Plt Morph Clumped 04/14 [place] (04/14/16 1:17 AM) HEMATOLOGY Segs 46.0 % 45.0 - 04/14 The 75.0 [place] HEMATOLOGY WBC 7.6 K/CMM 3.7 - 10.4 04/14 The [place] HEMATOLOGY RBC 4.33 M/CMM 4.70 - 04/14 The 6.10 [place] HEMATOLOGY MCV 88.8 fL 80.0 - 04/14 The 94.0 [place] HEMATOLOGY MCH 30.6 pg 27.0 - 04/14 The 31.0 [place] HEMATOLOGY MCHC 34.5 g/dL 32.0 - 04/14 The 36.0 [place] HEMATOLOGY MPV 10.4 fL 7.4 - 10.4 04/14 The [place] HEMATOLOGY RDW 12.8 % 11.5 - 04/14 The 14.5 [place] HEMATOLOGY Platelet 152 K/CMM 133 - 450 04/14 The [place] HEMATOLOGY Hgb 13.3 g/dL 14.0 - 04/14 The 18.0 [place] HEMATOLOGY Hct 38.4 % 42.0 - 04/14 The 54.0 [place] SPECIAL Hgb A1C 10.7 % <=5.6 % 04/14 The CHEMISTRY [place] CARDIAC Troponin-I null 0.00 - 04/14 The ENZYMES 0.40 [place] CARDIAC Troponin-I null 0.00 - 04/14 The ENZYMES 0. [place] CHEM PANEL eGFR 88 04/14 Result Comment: The eGFR is calculated using the CKD-EPI formula. In most young, healthy individuals the eGFR will be >90 mL/ min/1.73m2. The eGFR declines with age. An eGFR of 60-89 may be normal in The mL/min/1. some populations, particularly the elderly, for whom the CKD-EPI formula has not been extensively validated. Use of the eGFR is not recommended in the following populations: [place] 3m2 Individuals with unstable creatinine concentrations, including patients and those with serious co-morbid conditions. Patients with extremes in muscle mass or diet. The data above are obtained from the National Kidney Disease Education Program (NKDEP) which additionally recommends that when the eGFR is used in patients with extremes of body mass index for purposes of drug dosing, the eGFR should be multiplied by the estimated BMI. CHEM PANEL Bili Total 0.2 mg/dL 0.2 - 1.3 04/14 [place] CHEM PANEL Alk Phos 83 unit/L 39 - 136 04/14 The [place] CHEM PANEL Creatinine 0.94 mg/dL 0.50 - 04/14 The Lvl 1.40 [place] CHEM PANEL Sodium Lvl 133 meq/L 135 - 145 04/14 The [place] CHEM PANEL BUN 13 mg/dL 7 - 22 04/14 The [place] CHEM PANEL Potassium 4.3 meq/L 3.5 - 5.1 04/14 MH The Lvl [place] CHEM PANEL Glucose Lvl 400 mg/dL 70 - 99 04/14 Result The Comment: [place] Critical Result(s) called to [place] at 04/13/2016 18:49 by Jacinto Mann [place]. Read back OK. CHEM PANEL Chloride Lvl 100 meq/L 95 - 109 04/14 The [place] CHEM PANEL A/G Ratio 1.1 0.7 - 1.6 04/14 The [place] CHEM PANEL Albumin Lvl 3.7 g/dL 3.5 - 5.0 04/14 The [place] CHEM PANEL ALT 34 unit/L 0 - 65 04/14 The [place] CHEM PANEL Globulin 3.5 g/dL 2.7 - 4.2 04/14 The [place] CHEM PANEL AGAP 12.3 meq/L 10.0 - 04/14 The 20.0 [place] CHEM PANEL Calcium Lvl 8.9 mg/dL 8.5 - 10.5 04/14 The [place] CHEM PANEL CO2 25 meq/L 24 - 32 04/14 The [place] CHEM PANEL AST 11 unit/L 0 - 37 04/14 The [place] CHEM PANEL Total 7.2 g/dL 6.4 - 8.4 04/14 The Protein [place] CHEM PANEL B/C Ratio 14 6 - 25 04/14 The [place] CHEM PANEL Ketone 0.14 <=0.27 04/14 The Quantitative mmol/L mmol/L [place] HEMATOLOGY Segs-Bands # 4.8 K/CMM 1.5 - 8.1 04/14 The [place] HEMATOLOGY Lymphocytes 3.2 K/CMM 1.0 - 5.5 04/14 The # [place] HEMATOLOGY Monocytes # 0.5 K/CMM 0.0 - 0.8 04/14 The [place] HEMATOLOGY Eosinophils 0.2 K/CMM 0.0 - 0.5 04/14 The # [place] HEMATOLOGY Basophils 1.0 % 0.0 - 1.0 04/14 The [place] HEMATOLOGY Basophils # 0.1 K/CMM 0.0 - 0.2 04/14 The [place] HEMATOLOGY Segs 55.1 % 45.0 - 04/14 The 75.0 [place] HEMATOLOGY Lymphocytes 36.5 % 20.0 - 04/14 The 40.0 [place] HEMATOLOGY Monocytes 5.4 % 2.0 - 12.0 04/14 The [place] HEMATOLOGY Eosinophils 2.0 % 0.0 - 4.0 04/14 The [place] HEMATOLOGY PT 11.0 s 12.0 - 04/14 The 14. [place] HEMATOLOGY INR 0.78 0.85 - 04/14 The 1. [place] HEMATOLOGY MPV 10.0 fL 7.4 - 10.4 04/14 [place] HEMATOLOGY RDW 13.5 % 11.5 - 04/14 The 14 [place] HEMATOLOGY Platelet 183 K/CMM 133 - 450 04/14 [place] HEMATOLOGY Hct 41.2 % 42.0 - 04/14 The 54.0 [place] HEMATOLOGY Hgb 14.1 g/dL 14.0 - 04/14 The 18.0 [place] HEMATOLOGY RBC 4.64 M/CMM 4.70 - 04/14 The 6.10 [place] HEMATOLOGY WBC 8.6 K/CMM 3.7 - 10.4 04/14 [place] HEMATOLOGY MCHC 34.3 g/dL 32.0 - 04/14 The 36.0 [place] HEMATOLOGY MCH 30.4 pg 27.0 - 04/14 The 31.0 [place] HEMATOLOGY MCV 88.8 fL 80.0 - 04/14 The 94.0 [place] URINE AND UA pH 6.0 5.0 - 8.0 04/14 The STOOL /2016 [place] URINE AND UA Mucus Few /LPF None Seen 04/14 The STOOL /LPF /2016 [place] URINE AND UA <=1.0 0.1 - 1.0 04/14 The STOOL Urobilinogen mg/dL [place] URINE AND UA Sq Epi Occasional Few /LPF 04/14 The STOOL /LPF [place] URINE AND UA RBC null 0 - 2 04/14 The [place] URINE AND UA Leuk Est Negative Negative 04/14 The STOOL [place] (04/13/16 6:01 PM) URINE AND UA Nitrite Negative Negative 04/14 The [place] (04/13/16 6:01 PM) URINE AND UA Ketones Negative Negative 04/14 The STOOL mg/dL mg/dL [place] URINE AND UA Glucose >=1000 Negative 04/14 The STOOL mg/dL mg/dL [place] URINE AND UA Blood Negative Negative 04/14 The [place] (04/13/16 6:01 PM) URINE AND UA Bili Negative Negative 04/14 The [place] *NA* (04/13/16 6:01 PM) URINE AND UA Protein Negative Negative 04/14 The STOOL mg/dL mg/dL [place] URINE AND UA Spec Grav 1.026 <=1.030 04/14 The [place] URINE AND UA Turbidity Clear Clear 04/14 The [place] (04/13/16 6:01 PM) URINE AND UA Color Light Yellow Yellow 04/14 The [place] *NA* (04/13/16 6:01 PM) Chest Chest 1view Clinical Indication: Dyspnea. High blood sugar. 04/13 The 1view DX DX [facility] Comparison: 02/05/2016. Read by: Larry Alamo MD Dictated Date/time: 04/13/16 16:40 Electronically Signed by: Larry Alamo MD 04/13/16 16:40 FINAL REPORT TECHNIQUE: AP 1 view chest radiograph was performed. FINDINGS: LUNGS: Normal lung volumes. No interstitial or airspace opacities. No pleural effusions or pneumothorax. HEART AND MEDIASTINUM: The heart size is normal. The pulmonary vasculature is normal. The mediastinal contour is normal. The trachea is midline. OSSEOUS STRUCTURES: No acute abnormality seen. IMPRESSION: 1. No AP chest radiographic evidence of acute cardiopulmonary disease. SL: [id number] Brain wo Brain wo Patient Name: ART GRAY 02/04 - The contrast contrast CT /[address] [place] [address] : 1955; Age: 60 years y/o Male MR: [id number] Read by: TitiMaría galindo Drewap Dictated Date/time: 02/05/16 16:47 Electronically Signed by: María Sweeney 02/05/16 16:50 FINAL REPORT Study: Brain wo contrast CT 02/05/2016 4:24 PM CDT Ordering Physician: Art Lee MD Clinical Indication: Altered level of consciousness; blurry vision since last Thursday. Headache and dizziness. Comparison: None TECHNIQUE: CT images were obtained from the foramen magnum to the vertex without the use of intravenous contrast on a multidetector CT. Coronal and sagittal reconstructions were obtained. CT radiation dose DLP: 1107 mGy-cm FINDINGS: There is no evidence of acute intracranial hemorrhage, acute or subacute territorial infarct, mass effect, midline shift, extra-axial fluid collection, hydrocephalus or other acute abnormalities. The horton-white differentiation is well-maintained. The ventricles, basilar cisterns and posterior fossa are unremarkable. The calvarium, paranasal sinuses and mastoids are unremarkable. If there is further concern for intracranial pathology or acute stroke, MRI of the brain may be performed for complete assessment. IMPRESSION: No CT evidence of acute intracranial process. SL: [id number] URINE AND UA <=1.0 0.1 - 1.0 02/04 The STOOL Urobilinogen mg/dL [place] URINE AND UA Mucus Few /LPF None Seen 02/04 The STOOL /LPF [place] URINE AND UA WBC 1 /HPF 0 - 5 02/04 The STOOL [place] URINE AND UA Bili Negative Negative 02/04 The STOOL [place] *NA* (02/05/16 11:34 AM) URINE AND UA Ketones Negative Negative 02/04 The [facility] mg/dL mg/dL [place] URINE AND UA Sq Epi Moderate Few /LPF 02/04 The [facility] /LPF [place] URINE AND UA Blood Negative Negative 02/04 The [facility]OL [place] (02/05/16 11:34 AM) URINE AND UA Leuk Est Trace Negative 02/04 The [place] *ABN* (02/05/16 11:34 AM) URINE AND UA Nitrite Negative Negative 02/04 The [facility]OL [place] (02/05/16 11:34 AM) URINE AND UA Spec Grav 1.021 <=1.030 02/04 The [facility] [place] URINE AND UA Turbidity Clear Clear 02/04 The [facility]OL [place] (02/05/16 11:34 AM) URINE AND UA Protein Negative Negative 02/04 The [facility] mg/dL mg/dL /2015 [place] URINE AND UA pH 5.0 5.0 - 8.0 02/04 The ST[facility]OL [place] URINE AND UA Glucose >=1000 Negative 02/04 The STOOL mg/dL mg/dL /2015 [place] URINE AND UA Color Yellow Yellow 02/04 The STOOL [place] *NA* (02/05/16 11:34 AM) CARDIAC Total CK 150 unit/L 12 - 191 02/04 The ENZYMES [place] CARDIAC CK MB 1.5 ng/mL 0.5 - 3.6 02/04 The ENZYMES [place] CARDIAC Troponin-I null 0.00 - 02/04 The ENZYMES 0.40 [place] CARDIAC CK MB Index 1.0 0.0 - 2.5 02/04 The ENZYMES [place] CHEM PANEL Osmolality 295 280 - 300 02/04 The mOsm/kg [place] CHEM PANEL Ketone 0.18 <=0.27 02/04 The Quantitative mmol/L mmol/L /2015 [place] CHEM PANEL eGFR 94 02/04 Result Comment: The eGFR is calculated using the CKD-EPI formula. In most young, healthy individuals the eGFR will be >90 mL/ min/1.73m2. The eGFR declines with age. An eGFR of 60-89 may be normal in The mL/min/1.7 /2016 some populations, particularly the elderly, for whom the CKD-EPI formula has not been extensively validated. Use of the eGFR is not recommended in the following populations: [place] 3m2 Individuals with unstable creatinine concentrations, including patients and those with serious co-morbid conditions. Patients with extremes in muscle mass or diet. The data above are obtained from the National Kidney Disease Education Program (NKDEP) which additionally recommends that when the eGFR is used in patients with extremes of body mass index for purposes of drug dosing, the eGFR should be multiplied by the estimated BMI. CHEM PANEL Chloride Lvl 105 meq/L 95 - 109 02/04 The [place] CHEM PANEL AGAP 12.2 meq/L 10.0 - 11 The 20.0 [place] CHEM PANEL CO2 22 meq/L 24 - 32 02/04 The [place] CHEM PANEL Calcium Lvl 8.7 mg/dL 8.5 - 10.5 02/04 The [place] CHEM PANEL Potassium 4.2 meq/L 3.5 - 5.1 02/04 The Lvl /2015 [place] CHEM PANEL Sodium Lvl 135 meq/L 135 - 145 02/04 The [place] CHEM PANEL Glucose Lvl 272 mg/dL 70 - 99 02/04 The [place] CHEM PANEL BUN 15 mg/dL 7 - 22 02/04 The [place] CHEM PANEL Creatinine 0.87 mg/dL 0.50 - 02/04 The Lvl 1.40 [place] HEMATOLOGY MPV 9.9 fL 7.4 - 10.4 02/04 The [place] HEMATOLOGY Platelet 221 K/CMM 133 - 450 02/04 The [place] HEMATOLOGY RDW 12.9 % 11.5 - 02/04 The 14.5 [place] HEMATOLOGY MCHC 34.0 g/dL 32.0 - 02/04 The 36.0 [place] HEMATOLOGY MCH 30.7 pg 27.0 - 02/04 The 31.0 [place] HEMATOLOGY Hct 43.0 % 42.0 - 02/04 Result The 54.0 Comment: [place] Reference range changed due to change in patient's gender at 12:28:30. Normal Low changed from not defined to 42.0. Normal High changed from not defined to 54.0. Result flag changed from not applied to within range. HEMATOLOGY Hgb 14.6 g/dL 14.0 - 02/04 Result The 18.0 Comment: [place] Reference range changed due to change in patient's gender at 12:28:30. Normal Low changed from not defined to 14.0. Normal High changed from not defined to 18.0. Result flag changed from not applied to within range. HEMATOLOGY MCV 90.3 fL 80.0 - 02/04 Result The 94.0 Comment: [place] Reference range changed due to change in patient's gender at 12:28:30. Normal Low changed from not defined to 80.0. Normal High changed from not defined to 94.0. Result flag changed from not applied to within range. HEMATOLOGY RBC 4.76 M/CMM 4.70 - 02/04 Result The 09.13 Comment: [place] Reference range changed due to change in patient's gender at 12:28:30. Normal Low changed from not defined to 4.70. Normal High changed from not defined to 6.10. Result flag changed from not applied to within range. HEMATOLOGY WBC 8.6 K/CMM 3.7 - 10.4 02/04 The [place] HEMATOLOGY Eosinophils 0.2 K/CMM 0.0 - 0.5 02/04 The [place] HEMATOLOGY Lymphocytes 2.9 K/CMM 1.0 - 5.5 02/04 The [place] HEMATOLOGY Monocytes # 0.5 K/CMM 0.0 - 0.8 02/04 The [place] HEMATOLOGY Basophils 0.6 % 0.0 - 1.0 02/04 The [place] HEMATOLOGY Eosinophils 1.9 % 0.0 - 4.0 02/04 The [place] HEMATOLOGY Segs-Bands # 5.0 K/CMM 1.5 - 8.1 02/04 The [place] HEMATOLOGY Segs 57.4 % 45.0 - 02/04 The 75.0 [place] HEMATOLOGY Monocytes 6.3 % 2.0 - 12.0 02/04 The [place] HEMATOLOGY Lymphocytes 33.8 % 20.0 - 02/04 The 40.0 [place] Chest Chest 1view Clinical Indication: Dyspnea. Chest pain. 02/04 - The 1view DX DX [facility] Comparison: 04/09/2013. Read by: Larry Alamo MD Dictated Date/time: 02/05/16 12:08 Electronically Signed by: Larry Alamo MD 02/05/16 12:08 FINAL REPORT TECHNIQUE: AP 1 view chest radiograph was performed. FINDINGS: LUNGS: Small lung volumes. No interstitial or airspace opacities. No pleural effusions or pneumothorax. HEART AND MEDIASTINUM: The heart size is normal. The pulmonary vasculature is normal. The mediastinal contour is normal. The trachea is midline. OSSEOUS STRUCTURES: No acute abnormality seen. IMPRESSION: 1. No AP chest radiographic evidence of acute cardiopulmonary disease. SL: [id number] Vital Signs Vital Sign Value Date Comments Source Systolic (mm Hg) 133 04/14/2016 [facility] [place] Diastolic (mm Hg) 84 04/14/2016 [place] Heart Rate 61 04/14/2016 [place] Respitory Rate 18 04/14/2016 [place] Temperature Oral (F) 98.3 F 04/14/2016 [place] Systolic (mm Hg) 147 04/14/2016 [facility] [place] Diastolic (mm Hg) 87 04/14/2016 [place] Respitory Rate 18 04/14/2016 [place] Temperature Oral (F) 98.1 F 04/14/2016 [place] Heart Rate 58 04/14/2016 [place] Systolic (mm Hg) 140 04/14/2016 [place] Diastolic (mm Hg) 78 04/14/2016 [place] Respitory Rate 18 04/14/2016 [place] Heart Rate 57 04/14/2016 [place] Temperature Oral (F) 97.5 F 04/14/2016 [place] BMI Calculated 30.67 04/13/2016 [place] Height 185.42 cm 04/13/2016 [place] Weight 105.455 04/13/2016 [place] Heart Rate 71 02/06/2016 [place] Respitory Rate 20 02/06/2016 [place] Systolic (mm Hg) 141 02/06/2016 [place] Diastolic (mm Hg) 67 02/06/2016 [place] BMI Calculated 32.66 02/05/2016 [place] Weight 112.273 02/05/2016 [place] Systolic (mm Hg) 177 02/05/2016 [place] Diastolic (mm Hg) 92 02/05/2016 [place] Heart Rate 66 02/05/2016 [place] Respitory Rate 18 02/05/2016 [place] Height 185.42 cm 02/05/2016 [place] Encounters Location Location Encounter Encounter Reason Attending ADM DC Status Source Details Type Number For Provider Date Date Visit [facility] [id number] Art 02/04 02/05 The Brett Valadez /2015 [facility] [id number] [place] 04/13 04/14 Estevan Hackett /2016 [facility] Procedures Procedure Code Date Perfomer Comments Source Arthroscopy of knee 104507270 [place] Cholecystectomy [id number] [facility] Fusion of lumbar [id number] The spine [place]
--- OUTSIDE RECORDS SUMMARY | 2017-10-19 17:21 | XMS REPORT | Summary of Care ---
:1955 Author Organization [facility] Address [address] [place] [id number]- Encounter [facility] Keishantr_rolando(FIN) [id number] Date(s): 02/05/16 - 02/05/[address] [address]- Discharge Diagnosis: Hyperglycemia Discharge Disposition: Home or Self Care Attending Physician: Art Valadez MD Vital Signs Most recent to oldest [Reference Range]: 1 2 Height 185.42 cm (02/05/16 11:09 AM) Blood Pressure [90-140/60-90 mmHg] 141/67 mmHg 177/92 mmHg *HI* *HI* (02/05/16 8:00 PM) (02/05/16 11:09 AM) Respiratory Rate [14-20 BRMIN] 20 BRMIN 18 BRMIN (02/05/16 8:00 PM) (02/05/16 11:09 AM) Peripheral Pulse Rate [60-100 bpm] 71 bpm 66 bpm (02/05/16 8:00 PM) (02/05/16 11:09 AM) Weight 112.273 kg (02/05/16 11:09 AM) Body Mass Index 32.66 m2 (02/05/16 11:09 AM) Problem List Condition Effective Dates Status Health Status Informant Diabetes(Confirmed) Resolved Allergies, Adverse Reactions, Alerts Substance Reaction Severity Status NKDA Active Medications Dextrose 50% Syringe 25 gm, 50 mL, Route: IVP, Drug Form: INJ, Dosing Weight 113.636, kg, PRN, PRN Blood Glucose Results,Start date: 02/05/16 11:12:00 CDT, Duration: 30 day, Stop date: 03/06/16 10:11:00 [employer] Start Date: 02/05/16 Stop Date: 02/05/16 Status: DiscontinuedDextrose 50% Syringe 12.5 gm, 25 mL, Route: IVP, Drug Form: INJ, Dosing Weight 113.636, kg, PRN, PRN Blood Glucose Results, Start date: 02/05/16 11:12:00 CDT, Duration: 30 day, Stop date: 03/06/16 10:11:00 [employer] Start Date: 02/05/16 Stop Date: 02/05/16 Status: Discontinuedglucagon 1 mg, Route: IM, Drug form: PDR/INJ, PRN, Dosing Weight 113.636, kg, PRN Blood Glucose Results, Start date: 02/05/16 11:12:00 CDT, Duration: 30 day, Stop date : 03/06/16 10:11:00 [employer] Start Date: 02/05/16 Stop Date: 02/05/16 Status: DiscontinuedInsulin regular 10 unit, 0.1 mL, Route: SUB-Q, Drug form: INJ, ONCE, Dosing Weight 112.273, kg, Priority: STAT, Start date: 02/05/16 16:25:00 CDT, Stop date: 02/05/16 16:25:00 CDT Notes: (Same as: Humulin R and NovoLIN R)WASTE: F/P - Black; E - Municipal Trash Bin (Do not shake) Start Date: 02/05/16 Stop Date: 02/05/16 Status: CompletedSaline Flush 0.9% 10 mL, Route: IVP, Drug Form: INJ, Dosing Weight 113.636, kg, PRN, PRN Line Flush, Start date: 02/05/16 11:12:00 CDT, Duration: 30 day, Stop date: 03/06/16 10:11:00 [employer] Notes: preservative free. Start Date: 02/05/16 Stop Date: 02/05/16 Status: DiscontinuedSodium Chloride 0.9% (Bolus) IV 1,000 mL, 2,000 ml/hr, Infuse Over: 30 minutes, Route: IV, 1,000, Drug form: INJ , ONCE, Priority: STAT, Dosing Weight 112.273 kg, Start date: 02/05/16 16:25:00 CDT, Duration: 1 doses or times, Stop date: 02/05/16 16:25:00 CDT Start Date: 02/05/16 Stop Date: 02/05/16 Status: OrderedSodium Chloride 0.9% (Bolus) IV 1,000 mL, 2000 ml/hr, Infuse Over: 30 minutes, Route: IV, 1,000, Drug form: INJ , ONCE, Priority: STAT, Dosing Weight 113.636 kg, Start date: 02/05/16 11:12:00 CDT, Duration: 1 doses or times, Stop date: 02/05/16 11:12:00 CDT Start Date: 02/05/16 Stop Date: 02/05/16 Status: Ordered Results ELECTROLYTES Most recent to oldest [Reference Range]: 1 Sodium Lvl [135-145 mEq/L] 135 mEq/L (02/05/16 11:29 AM) Potassium Lvl [3.5-5.1 mEq/L] 4.2 mEq/L (02/05/16 11:29 AM) Chloride Lvl [95-109 mEq/L] 105 mEq/L (02/05/16 11:29 AM) CO2 [24-32 mEq/L] 22 mEq/L *LOW* (02/05/16 11:29 AM) AGAP [10.0-20.0 mEq/L] 12.2 mEq/L (02/05/16 11:29 AM) CHEM PANEL Most recent to oldest [Reference Range]: 1 Creatinine Lvl [0.50-1.40 mg/dL] 0.87 mg/dL (02/05/16 11:29 AM) eGFR 94 mL/min/1.73m2 1 *NA* (02/05/16 11:29 AM) BUN [7-22 mg/dL] 15 mg/dL (02/05/16 11:29 AM) Glucose Lvl [70-99 mg/dL] 272 mg/dL *HI* (02/05/16 11:29 AM) Calcium Lvl [8.5-10.5 mg/dL] 8.7 mg/dL (02/05/16 11:29 AM) Ketone Quantitative [<=0.27 mmol/L] 0.18 mmol/L (02/05/16 11:29 AM) Osmolality [280-300 mOsm/kg] 295 mOsm/kg (02/05/16 11:29 AM) 1Result Comment: The eGFR is calculated using the CKD-EPI formula. In most young , healthy individualsthe eGFR will be >90 mL/min/1.73m2. The eGFR declines with age. An eGFR of 60-89 may be normal in some populations, particularly the elderly, for whom the CKD-EPI formula has not been extensively validated. Use of the eGFR is not recommended in the following populations: Individuals with unstable creatinine concentrations, including patients and those with serious co-morbid conditions. Patients with extremes in muscle mass or diet. The data above are obtained from the National Kidney Disease Education Program ( NKDEP) which additionally recommends that when the eGFR is used in patients with extremes of body mass index for purposesof drug dosing, the eGFR should be multiplied by the estimated BMI.CARDIAC ENZYMES Most recent to oldest [Reference Range]: 1 Total CK [12-191 unit/L] 150 unit/L (02/05/16 11:29 AM) CK MB [0.5-3.6 ng/mL] 1.5 ng/mL (02/05/16 11:29 AM) CK MB Index [0.0-2.5] 1.0 (02/05/16 11:29 AM) Troponin-I [0.00-0.40 ng/mL] <0.02 ng/mL (02/05/16 11:29 AM) URINE AND STOOL Most recent to oldest [Reference Range]: 1 UA Turbidity [Clear] Clear (02/05/16 11:34 AM) UA Color [Yellow] Yellow *NA* (02/05/16 11:34 AM) UA pH [5.0-8.0] 5.0 (02/05/16 11:34 AM) UA Spec Grav [<=1.030] 1.021 (02/05/16 11:34 AM) UA Glucose [Negative mg/dL] >=1000 mg/dL *ABN* (02/05/16 11:34 AM) UA Blood [Negative] Negative (02/05/16 11:34 AM) UA Ketones [Negative mg/dL] Negative mg/dL *NA* (02/05/16 11:34 AM) UA Protein [Negative mg/dL] Negative mg/dL (02/05/16 11:34 AM) UA Urobilinogen [0.1-1.0 mg/dL] <=1.0 mg/dL *NA* (02/05/16 11:34 AM) UA Bili [Negative] Negative *NA* (02/05/16 11:34 AM) UA Leuk Est [Negative] Trace *ABN* (02/05/16 11:34 AM) UA Nitrite [Negative] Negative (02/05/16 11:34 AM) UA WBC [0-5 /HPF] 1 /HPF (02/05/16 11:34 AM) UA Sq Epi [Few /LPF] Moderate /LPF *ABN* (02/05/16 11:34 AM) UA Mucus [None Seen /LPF] Few /LPF *NA* (02/05/16 11:34 AM) HEMATOLOGY Most recent to oldest [Reference Range]: 1 WBC [3.7-10.4 K/CMM] 8.6 K/CMM (02/05/16 11:29 AM) RBC [4.70-6.10 M/CMM] 4.76 M/CMM 1 (02/05/16 11:29 AM) Hgb [14.0-18.0 g/dL] 14.6 g/dL 2 (02/05/16 11:29 AM) Hct [42.0-54.0 %] 43.0 % 3 (02/05/16 11:29 AM) MCV [80.0-94.0 fL] 90.3 fL 4 (02/05/16 11:29 AM) MCH [27.0-31.0 pg] 30.7 pg (02/05/16 11:29 AM) MCHC [32.0-36.0 g/dL] 34.0 g/dL (02/05/16 11:29 AM) RDW [11.5-14.5 %] 12.9 % (02/05/16 11:29 AM) Platelet [133-450 K/CMM] 221 K/CMM (02/05/16 11:29 AM) MPV [7.4-10.4 fL] 9.9 fL (02/05/16 11:29 AM) Segs [45.0-75.0 %] 57.4 % (02/05/16 11:29 AM) Lymphocytes [20.0-40.0 %] 33.8 % (02/05/16 11:29 AM) Monocytes [2.0-12.0 %] 6.3 % (02/05/16 11:29 AM) Eosinophils [0.0-4.0 %] 1.9 % (02/05/16 11:29 AM) Basophils [0.0-1.0 %] 0.6 % (02/05/16 11:29 AM) Segs-Bands # [1.5-8.1 K/CMM] 5.0 K/CMM (02/05/16 11:29 AM) Lymphocytes # [1.0-5.5 K/CMM] 2.9 K/CMM (02/05/16 11:29 AM) Monocytes # [0.0-0.8 K/CMM] 0.5 K/CMM (02/05/16 11:29 AM) Eosinophils # [0.0-0.5 K/CMM] 0.2 K/CMM (02/05/16 11:29 AM) 1Result Comment: Reference range changed due to change in patient's gender at 12:28:30. Normal Low changed from not defined to 4.70. Normal High changed from not defined to 6.10. Result flag changed from not applied to within range.2Result Comment: Reference range changed due to change in patient' s gender at 12:28:30. Normal Low changed from not defined to 14.0. Normal High changed from not defined to 18.0. Result flag changed from not applied to within range.3Result Comment: Reference range changed due to change in patient's gender at 12:28:30. Normal Low changed from not defined to 42.0. Normal High changed from not defined to 54.0. Result flag changed from not applied to within range.4Result Comment: Reference range changed due to change in patient's gender at 12:28:30. Normal Low changed from not defined to 80.0. Normal High changed from not defined to 94.0. Result flag changed from not applied to within range. Immunizations No data available for this section Procedures No data available for this section Social History Social History Type Response Smoking Status Former smoker; Type: Cigarettes; Exposure to Tobacco Smoke None ; Cigarette Smoking Last 365 Days Yes; Reg Smoking Cessation Counseling No Assessment and Plan No data available for this section
--- OUTSIDE RECORDS SUMMARY | 2017-10-19 17:21 | XMS REPORT | Summary of Care ---
:1955 Author Organization [facility] Address [address] [place], [place] [address]- Encounter HQ Keishantr_rolando(FIN) [phone] Date(s): 04/13/16 - 04/14/[address] [address]- Discharge Disposition: Home or Self Care Attending Physician: Hanna Hackett MD Admitting Physician: Hanna Hackett MD Vital Signs Most recent to oldest [Reference 1 2 3 Range]: Height 185.42 cm (04/13/16 4:11 PM) Temperature Oral [96.4-99.1 DegF] 98.3 DegF 98.1 DegF 97.5 DegF (04/14/16 3:56 PM) (04/14/16 11:12 AM) (04/14/16 7:11 AM) Blood Pressure [90-140/60-90 133/84 mmHg 147/87 mmHg 140/78 mmHg mmHg] (04/14/16 3:56 PM) *HI* (04/14/16 7:11 AM) (04/14/16 11:12 AM) Respiratory Rate [14-20 BRMIN] 18 BRMIN 18 BRMIN 18 BRMIN (04/14/16 3:56 PM) (04/14/16 11:12 AM) (04/14/16 7:11 AM) Peripheral Pulse Rate [60-100 61 bpm 58 bpm 57 bpm bpm] (04/14/16 3:56 PM) *LOW* *LOW* (04/14/16 11:12 AM) (04/14/16 7:11 AM) Weight 105.455 kg (04/13/16 4:11 PM) Body Mass Index 30.67 m2 (04/13/16 4:11 PM) Problem List Condition Effective Dates Status Health Status Informant Diabetes(Confirmed) Resolved 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 (Same as: Tylenol) Start Date: 04/13/16 Stop Date: 04/14/16 Status: Discontinuedacetaminophen 975 mg, Route: PO, ONCE, Dosing Weight 105.455, kg, Priority: STAT, Start date: 04/13/16 18:04:00 LOGISTICS TEAM LEADER, Stop date: 04/13/16 18:04:00 LOGISTICS TEAM LEADER Start Date: 04/13/16 Stop Date: 04/13/16 Status: CompletedCompazine 10 mg, Route: IV, ONCE, Dosing Weight 105.455, kg, Start date: 04/13/16 17:23: 00 LOGISTICS TEAM LEADER, Stop date: 04/13/16 17:23:00 LOGISTICS TEAM LEADER Start Date: 04/13/16 Stop Date: 04/13/16 Status: CompletedDextrose 50% Syringe 12.5 gm, 25 mL, Route: IVP, Drug Form: INJ, Dosing Weight 105.455, kg, PRN, PRN Blood Glucose Results, Start date: 04/13/16 21:05:00 LOGISTICS TEAM LEADER, Duration: 30 day, Stop date: 05/13/16 21:04:00 LOGISTICS TEAM LEADER Start Date: 04/13/16 Stop Date: 04/14/16 Status: DiscontinuedDextrose 50% Syringe 25 gm, 50 mL, Route: IVP, Drug Form: INJ, Dosing Weight 105.455, kg, PRN, PRN Blood Glucose Results,Start date: 04/13/16 21:05:00 LOGISTICS TEAM LEADER, Duration: 30 day, Stop date: 05/13/16 21:04:00 LOGISTICS TEAM LEADER Start Date: 04/13/16 Stop Date: 04/14/16 Status: DiscontinuedDextrose 50% Syringe 25 gm, 50 mL, Route: IVP, Drug Form: INJ, Dosing Weight 105.455, kg, PRN, PRN Blood Glucose Results,Start date: 04/13/16 16:16:00 LOGISTICS TEAM LEADER, Duration: 30 day, Stop date: 05/13/16 16:15:00 LOGISTICS TEAM LEADER Start Date: 04/13/16 Stop Date: 04/14/16 Status: DiscontinuedDextrose 50% Syringe 12.5 gm, 25 mL, Route: IVP, Drug Form: INJ, Dosing Weight 105.455, kg, PRN, PRN Blood Glucose Results, Start date: 04/13/16 16:16:00 LOGISTICS TEAM LEADER, Duration: 30 day, Stop date: 05/13/16 16:15:00 LOGISTICS TEAM LEADER Start Date: 04/13/16 Stop Date: 04/14/16 Status: DiscontinuedDextrose 50% Syringe 25 gm, 50 mL, Route: IVP, Drug Form: INJ, Dosing Weight 105.455, kg, PRN, PRN Blood Glucose Results,Start date: 04/13/16 19:38:00 LOGISTICS TEAM LEADER, Duration: 30 day, Stop date: 05/13/16 19:37:00 LOGISTICS TEAM LEADER Start Date: 04/13/16 Stop Date: 04/14/16 Status: DiscontinuedDextrose 50% Syringe 12.5 gm, 25 mL, Route: IVP, Drug Form: INJ, Dosing Weight 105.455, kg, PRN, PRN Blood Glucose Results, Start date: 04/13/16 19:38:00 LOGISTICS TEAM LEADER, Duration: 30 day, Stop date: 05/13/16 19:37:00 LOGISTICS TEAM LEADER Start Date: 04/13/16 Stop Date: 04/14/16 Status: DiscontinuedDilaudid 0.5 mg, 0.25 mL, Route: IVP, Drug form: INJ, Q4H, Dosing Weight 105.455, kg, PRN Pain Score 7-10, Start date: 04/14/16 12:55:00 LOGISTICS TEAM LEADER, Duration: 30 day, Stop date: 05/14/16 12:54:00 LOGISTICS TEAM LEADER Notes: Same as Dilaudid Start Date: 04/14/16 Stop Date: 04/14/16 Status: Discontinuedglucagon 1 mg, Route: IM, Drug form: PDR/INJ, PRN, Dosing Weight 105.455, kg, PRN Blood Glucose Results, Start date: 04/13/16 21:05:00 LOGISTICS TEAM LEADER, Duration: 30 day, Stop date : 05/13/16 21:04:00 LOGISTICS TEAM LEADER Start Date: 04/13/16 Stop Date: 04/14/16 Status: Discontinuedglucagon 1 mg, Route: IM, Drug form: PDR/INJ, PRN, Dosing Weight 105.455, kg, PRN Blood Glucose Results, Start date: 04/13/16 16:16:00 LOGISTICS TEAM LEADER, Duration: 30 day, Stop date : 05/13/16 16:15:00 LOGISTICS TEAM LEADER Start Date: 04/13/16 Stop Date: 04/14/16 Status: Discontinuedglucagon 1 mg, Route: IM, Drug form: PDR/INJ, PRN, Dosing Weight 105.455, kg, PRN Blood Glucose Results, Start date: 04/13/16 19:38:00 LOGISTICS TEAM LEADER, Duration: 30 day, Stop date : 05/13/16 19:37:00 LOGISTICS TEAM LEADER Start Date: 04/13/16 Stop Date: 04/14/16 Status: Discontinuedinfluenza virus vaccine, inactivated 0.5 mL, Route: IM, Drug Form: SUSP, Daily, Start date: 04/14/16 9:00:00 LOGISTICS TEAM LEADER, Duration: 1 doses or times, Stop date: 04/14/16 9:00:00 LOGISTICS TEAM LEADER Notes: (Same as: Fluzone Quadrivalent, Fluarix Quadrivalent)For 3 years of age and older (0.5 mL IM)Shake well before use Start Date: 04/14/16 Stop Date: 04/14/16 Status: Completedinfluenza virus vaccine, inactivated 0.5 mL, Route: IM, Drug Form: SUSP, Daily, Start date: 04/14/16 10:06:00 LOGISTICS TEAM LEADER, Duration: 1 doses or times, Stop date: 04/14/16 10:06:00 LOGISTICS TEAM LEADER Notes: (Same as: Fluzone Quadrivalent, Fluarix Quadrivalent)For 3 years of age and older (0.5 mL IM)Shake well before use Start Date: 04/14/16 Stop Date: 04/14/16 Status: Completedinsulin aspart 2 unit, 0.02 mL, Route: SUB-Q, Drug form: SOLN, Bedtime, Dosing Weight 105.455, kg, PRN Blood Glucose Results, Start date: 04/13/16 21:05:00 LOGISTICS TEAM LEADER, Duration: 30 day, Stop date: 05/13/16 21:04:00 LOGISTICS TEAM LEADER Notes: Roll in palms of hands gently; Do not shake vigorously. (Same as: NovoLOG)"single patient use only"WASTE: F/P - Black; E - Municipal Trash Bin Stable for 28 days at room temperature.Expires in days from Date Start Date: 04/13/16 Stop Date: 04/14/16 Status: Discontinuedinsulin aspart 1 unit, 0.01 mL, Route: SUB-Q, Drug form: SOLN, Bedtime, Dosing Weight 105.455, kg, PRN Blood Glucose Results, Start date: 04/13/16 21:05:00 LOGISTICS TEAM LEADER, Duration: 30 day, Stop date: 05/13/16 21:04:00 LOGISTICS TEAM LEADER Notes: Roll in palms of hands gently; Do not shake vigorously. (Same as: NovoLOG)"single patient use only"WASTE: F/P - Black; E - Municipal Trash Bin Stable for 28 days at room temperature.Expires in days from Date Start Date: 04/13/16 Stop Date: 04/14/16 Status: Discontinuedinsulin aspart 3 unit, 0.03 mL, Route: SUB-Q, Drug form: SOLN, Bedtime, Dosing Weight 105.455, kg, PRN Blood Glucose Results, Start date: 04/13/16 21:05:00 LOGISTICS TEAM LEADER, Duration: 30 day, Stop date: 05/13/16 21:04:00 LOGISTICS TEAM LEADER Notes: Roll in palms of hands gently; Do not shake vigorously. (Same as: NovoLOG)"single patient use only"WASTE: F/P - Black; E - Municipal Trash Bin Stable for 28 days at room temperature.Expires in days from Date Start Date: 04/13/16 Stop Date: 04/14/16 Status: Discontinuedinsulin aspart 4 unit, 0.04 mL, Route: SUB-Q, Drug form: SOLN, Bedtime, Dosing Weight 105.455, kg, PRN Blood Glucose Results, Start date: 04/13/16 21:05:00 LOGISTICS TEAM LEADER, Duration: 30 day, Stop date: 05/13/16 21:04:00 LOGISTICS TEAM LEADER Notes: Roll in palms of hands gently; Do not shake vigorously. (Same as: NovoLOG)"single patient use only"WASTE: F/P - Black; E - Municipal Trash Bin Stable for 28 days at room temperature.Expires in days from Date Start Date: 04/13/16 Stop Date: 04/14/16 Status: Discontinuedinsulin aspart 6 unit, 0.06 mL, Route: SUB-Q, Drug form: SOLN, TID-Before Meals, Dosing Weight 105.455, kg, PRN Blood Glucose Results, Start date: 04/13/16 19:38:00 LOGISTICS TEAM LEADER, Duration: 30 day, Stop date: 05/13/16 19:37:00CST Notes: Roll in palms of hands gently; Do not shake vigorously. (Same as: NovoLOG)"single patient use only"WASTE: F/P - Black; E - Municipal Trash Bin Stable for 28 days at room temperature.Expires in days from Date Start Date: 04/13/16 Stop Date: 04/14/16 Status: Discontinuedinsulin aspart 2 unit, 0.02 mL, Route: SUB-Q, Drug form: SOLN, TID-Before Meals, Dosing Weight 105.455, kg, PRN Blood Glucose Results, Start date: 04/13/16 19:38:00 LOGISTICS TEAM LEADER, Duration: 30 day, Stop date: 05/13/16 19:37:00CST Notes: Roll in palms of hands gently; Do not shake vigorously. (Same as: NovoLOG)"single patient use only"WASTE: F/P - Black; E - Municipal Trash Bin Stable for 28 days at room temperature.Expires in days from Date Start Date: 04/13/16 Stop Date: 04/14/16 Status: Discontinuedinsulin aspart 8 unit, 0.08 mL, Route: SUB-Q, Drug form: SOLN, TID-Before Meals, Dosing Weight 105.455, kg, PRN Blood Glucose Results, Start date: 04/13/16 19:38:00 LOGISTICS TEAM LEADER, Duration: 30 day, Stop date: 05/13/16 19:37:00CST Notes: Roll in palms of hands gently; Do not shake vigorously. (Same as: XagenicLOG)"single patient use only"WASTE: F/P - Black; E - Municipal Trash Bin Stable for 28 days at room temperature.Expires in days from Date Start Date: 04/13/16 Stop Date: 04/14/16 Status: Discontinuedinsulin aspart 4 unit, 0.04 mL, Route: SUB-Q, Drug form: SOLN, TID-Before Meals, Dosing Weight 105.455, kg, PRN Blood Glucose Results, Start date: 04/13/16 19:38:00 LOGISTICS TEAM LEADER, Duration: 30 day, Stop date: 05/13/16 19:37:00CST Notes: Roll in palms of hands gently; Do not shake vigorously. (Same as: Solicore)"single patient use only"WASTE: F/P - Black; E - Municipal Trash Bin Stable for 28 days at room temperature.Expires in days from Date Start Date: 04/13/16 Stop Date: 04/14/16 Status: Discontinuedinsulin aspart 10 unit, 0.1 mL, Route: SUB-Q, Drug form: SOLN, TID-Before Meals, Dosing Weight 105.455, kg, PRN Blood Glucose Results, Start date: 04/13/16 19:38:00 LOGISTICS TEAM LEADER, Duration: 30 day, Stop date: 05/13/16 19:37:00CST Notes: Roll in palms of hands gently; Do not shake vigorously. (Same as: NovoLOG)"single patient use only"WASTE: F/P - Black; E - Municipal Trash Bin Stable for 28 days at room temperature.Expires in days from Date Start Date: 04/13/16 Stop Date: 04/14/16 Status: Discontinuedinsulin detemir 10 unit, 0.1 mL, Route: SUB-Q, Drug form: INJ, Q12H, Dosing Weight 105.455, kg, Start date: 04/13/1720:00:00 LOGISTICS TEAM LEADER, Duration: 30 day, Stop date: 05/13/16 9:00:00 LOGISTICS TEAM LEADER Notes: Same as LevemirDo not hold insulin without contacting prescriberWASTE: F/ P - Black; E - Municipal Trash Bin "single patient use only" Start Date: 04/13/16 Stop Date: 04/14/16 Status: DiscontinuedInsulin regular 10 unit, 0.1 mL, Route: SUB-Q, Drug form: INJ, ONCE, Dosing Weight 105.455, kg, Priority: STAT, Start date: 04/13/16 18:50:00 LOGISTICS TEAM LEADER, Stop date: 04/13/16 18:50:00 LOGISTICS TEAM LEADER Notes: (Same as: Humulin R and NovoLIN R)WASTE: F/P - Black; E - Municipal Trash Bin (Do not shake) Start Date: 04/13/16 Stop Date: 04/13/16 Status: Deletedinsulin regular 100 units/mL human recombinant 10 unit, 0.1 mL, Route: SUB-Q, Drug form: SOLN, ONCE, Dosing Weight 105.455, kg , Priority: STAT, Start date: 04/13/16 19:24:00 LOGISTICS TEAM LEADER, Stop date: 04/13/16 19:24: 00 LOGISTICS TEAM LEADER Notes: (Same as: Humulin R) Roll in palms of hands gently; Do not shake vigorously. "single patientuse only"(Restricted to patients requiring a dose > 60 units)WASTE: F/P - Black; E - Municipal Trash Bin Stable for 28 days at room temperatureExpires in days from Date Start Date: 04/13/16 Stop Date: 04/13/16 Status: CompletedketOROLAC 30 mg, Route: IVP, Drug form: INJ, ONCE, Dosing Weight 105.455, kg, Priority: STAT, Start date: 04/13/16 18:04:00 LOGISTICS TEAM LEADER, Stop date: 04/13/16 18:04:00 LOGISTICS TEAM LEADER Start Date: 04/13/16 Stop Date: 04/13/16 Status: CompletedLevemir FlexPen 100 units/mL subcutaneous solution 14 unit, SUB-Q, BID, # 3 mL, 0 Refill(s) Start Date: 04/14/16 Stop Date: 04/28/16 Status: OrderedLORazepam 0.5 mg, 1 tab, Route: PO, Drug form: TAB, ONCE, Dosing Weight 105.455, kg, PRN as needed for anxiety, Start date: 04/13/16 21:44:00 LOGISTICS TEAM LEADER Notes: (Same as: Ativan) Start Date: 04/13/16 Stop Date: 04/14/16 Status: CompletedmetFORMIN 500 mg oral tablet 500 mg=1 tab, PO, BID, # 28 tab, 0 Refill(s) Start Date: 04/14/16 Stop Date: 04/28/16 Status: OrderedNovoLOG FlexPen 14 unit, 0.14 mL, Route: SUB-Q, Drug form: SOLN, ONCE, Dosing Weight 105.455, kg , Start date: 04/13/16 22:00:00 LOGISTICS TEAM LEADER, Stop date: 04/13/16 22:00:00 LOGISTICS TEAM LEADER Notes: Roll in palms of hands gently; Do not shake vigorously. (Same as: NovoBocandy)"single patient use only"WASTE: F/P - Black; E - Municipal Trash Bin Stable for 28 days at room temperature.Expires in days from Date Start Date: 04/13/16 Stop Date: 04/14/16 Status: CompletedOfirmev 1,000 mg, 100 mL, Route: IV, Drug form: INJ, ONCE, PRN Pain Score 4-6, Start date: 04/13/16 23:29:00CST Notes: Infuse over 15 minutesDo not exceed 4gm/day of acetaminophen MEDICATION WASTE ProductSize: 1000 mgProduct Wasted: ___ mg Start Date: 04/13/16 Stop Date: 04/14/16 Status: DiscontinuedOfirmev 1,000 mg, Route: IVP, ONCE, Dosing Weight 105.455, kg, PRN Pain Score 4-6, Start date: 04/13/16 21:51:00 LOGISTICS TEAM LEADER Start Date: 04/13/16 Stop Date: 04/13/16 Status: Deletedpneumococcal 23-valent vaccine 0.5 mL, Route: IM, Drug Form: INJ, Daily, Start date: 04/14/16 9:00:00 LOGISTICS TEAM LEADER, Duration: 1 doses or times, Stop date: 04/14/16 9:00:00 LOGISTICS TEAM LEADER Notes: (Same as: Pneumovax 23) Refrigerate Start Date: 04/14/16 Stop Date: 04/14/16 Status: CompletedPneumovax 23 0.5 mL, Route: IM, Drug Form: INJ, Daily, Start date: 04/14/16 10:06:00 LOGISTICS TEAM LEADER, Duration: 1 doses or times, Stop date: 04/14/16 10:06:00 LOGISTICS TEAM LEADER Notes: (Same as: Pneumovax 23) Refrigerate Start Date: 04/14/16 Stop Date: 04/14/16 Status: Completedpotassium chloride 40 mEq, 2 tab, Route: PO, Drug form: ERTAB, ONCE, Dosing Weight 105.455, kg, Start date: 04/14/16 13:11:00 LOGISTICS TEAM LEADER, Stop date: 04/14/16 13:11:00 LOGISTICS TEAM LEADER Notes: (Same as: K-Dur 20)"Do Not Crush" With food and full glass of water Start Date: 04/14/16 Stop Date: 04/14/16 Status: Completedpotassium chloride 40 mEq, 2 tab, Route: PO, Drug form: ERTAB, ONCE, Dosing Weight 105.455, kg, Start date: 04/14/16 6:00:00 LOGISTICS TEAM LEADER, Stop date: 04/14/16 6:00:00 LOGISTICS TEAM LEADER Notes: (Same as: K-Dur 20)"Do Not Crush" With food and full glass of water Start Date: 04/14/16 Stop Date: 04/14/16 Status: CompletedSaline Flush 0.9% 10 mL, Route: IVP, Drug Form: INJ, Dosing Weight 105.455, kg, PRN, PRN Line Flush, Start date: 04/13/16 16:16:00 LOGISTICS TEAM LEADER, Duration: 30 day, Stop date: 05/13/16 16:15:00 LOGISTICS TEAM LEADER Notes: Same as: BD Posiflush Sterile Start Date: 04/13/16 Stop Date: 04/14/16 Status: DiscontinuedSodium Chloride 0.9% (Bolus) IV 1,000 mL, Infuse Over: 1 hr, Route: IV, ONCE, Priority: STAT, Dosing Weight 105.455 kg, Start date: 04/13/16 17:22:00 LOGISTICS TEAM LEADER, Duration: 1 doses or times, Stop date: 04/13/16 17:22:00 LOGISTICS TEAM LEADER Start Date: 04/13/16 Stop Date: 04/13/16 Status: CompletedSodium Chloride 0.9% (Bolus) IV 1,000 mL, 1000 ml/hr, Infuse Over: 1 hr, Route: IV, 1,000, Drug form: INJ, ONCE , Priority: STAT, Dosing Weight 105.455 kg, Start date: 04/13/16 16:16:00 LOGISTICS TEAM LEADER, Duration: 1 doses or times, Stop date: 04/13/16 16:16:00 LOGISTICS TEAM LEADER Start Date: 04/13/16 Stop Date: 04/13/16 Status: Completedsodium chloride 0.9% 1000 ml INJ 1,000 mL 1,000 mL, Rate: 250 ml/hr, Infuse over: 4 hr, Route: IV, Dosing Weight 105.455 kg, Total Volume: 1,000, Start date: 04/13/16 19:39:00 LOGISTICS TEAM LEADER, Duration: 30 day, Stop date: 05/13/16 19:38:00 LOGISTICS TEAM LEADER Start Date: 04/13/16 Stop Date: 04/14/16 Status: Discontinuedsodium chloride 0.9% 1000 ml INJ 1,000 mL 1,000 mL, Rate: 250 ml/hr, Infuse over: 4 hr, Route: IV, Dosing Weight 105.455 kg, Total Volume: 1,000, Start date: 04/13/16 19:12:00 LOGISTICS TEAM LEADER, Duration: 30 day, Stop date: 05/13/16 19:11:00 LOGISTICS TEAM LEADER Start Date: 04/13/16 Stop Date: 04/14/16 Status: Discontinuedtramadol 50 mg, 1 tab, Route: PO, Drug form: TAB, Q4H, Dosing Weight 105.455, kg, PRN Pain Score 4-6, Start date: 04/13/16 21:04:00 LOGISTICS TEAM LEADER, Duration: 30 day, Stop date: 05/13/16 21:03:00 LOGISTICS TEAM LEADER Notes: Not to exceed 400mg/day. (Same As: Ultram) Start Date: 04/13/16 Stop Date: 04/14/16 Status: Discontinuedtramadol 50 mg oral tablet 50 mg=1 tab, PO, Q6H, PRN Pain Score 4-6, X 3 day, # 12 tab, 0 Refill(s) Start Date: 04/14/16 Stop Date: 04/17/16 Status: Ordered Results ELECTROLYTES Most recent to oldest [Reference Range]: 1 2 3 Sodium Lvl [135-145 mEq/L] 139 mEq/L 133 mEq/L (04/14/16 1:17 AM) *LOW* (04/13/16 6:20 PM) Potassium Lvl [3.5-5.1 mEq/L] 3.4 mEq/L 4.3 mEq/L *LOW* (04/13/16 6:20 PM) (04/14/16 1:17 AM) Chloride Lvl [95-109 mEq/L] 106 mEq/L 100 mEq/L (04/14/16 1:17 AM) (04/13/16 6:20 PM) CO2 [24-32 mEq/L] 26 mEq/L 25 mEq/L (04/14/16 1:17 AM) (04/13/16 6:20 PM) AGAP [10.0-20.0 mEq/L] 10.4 mEq/L 12.3 mEq/L (04/14/16 1:17 AM) (04/13/16 6:20 PM) CHEM PANEL Most recent to oldest [Reference Range]: 1 2 3 Creatinine Lvl [0.50-1.40 mg/dL] 0.68 mg/dL 0.94 mg/dL (04/14/16 1:17 AM) (04/13/16 6:20 PM) eGFR 105 mL/min/1.73m2 1 88 mL/min/1.73m2 2 *NA* *NA* (04/14/16 1:17 AM) (04/13/16 6:20 PM) BUN [7-22 mg/dL] 11 mg/dL 13 mg/dL (04/14/16 1:17 AM) (04/13/16 6:20 PM) B/C Ratio [6-25] 14 (04/13/16 6:20 PM) Glucose Lvl [70-99 mg/dL] 199 mg/dL 3 400 mg/dL 4 *HI* *CRIT* (04/14/16 1:17 AM) (04/13/16 6:20 PM) Total Protein [6.4-8.4 g/dL] 7.2 g/dL (04/13/16 6:20 PM) Albumin Lvl [3.5-5.0 g/dL] 3.7 g/dL (04/13/16 6:20 PM) Globulin [2.7-4.2 g/dL] 3.5 g/dL (04/13/16 6:20 PM) A/G Ratio [0.7-1.6] 1.1 (04/13/16 6:20 PM) Calcium Lvl [8.5-10.5 mg/dL] 7.8 mg/dL 8.9 mg/dL *LOW* (04/13/16 6:20 PM) (04/14/16 1:17 AM) Phosphorus [2.5-4.5 mg/dL] 3.0 mg/dL (04/14/16 1:17 AM) Magnesium Lvl [1.8-2.4 mg/dL] 1.8 mg/dL (04/14/16 1:17 AM) ALT [0-65 unit/L] 34 unit/L (04/13/16 6:20 PM) AST [0-37 unit/L] 11 unit/L (04/13/16 6:20 PM) Alk Phos [39-136 unit/L] 83 unit/L (04/13/16 6:20 PM) Bili Total [0.2-1.3 mg/dL] 0.2 mg/dL (04/13/16 6:20 PM) Ketone Quantitative [<=0.27 mmol/L] 0.14 mmol/L (04/13/16 6:20 PM) 1Result Comment: The eGFR is calculated using [...] eGFR should be multiplied by the estimated BMI.2Result Comment: The eGFR is calculated using the CKD-EPI formula. In most young, healthy individualsthe eGFR will be >90 mL/ min/1.73m2. The [...] eGFR should be multiplied by the estimated BMI.3Result Comment: reviewed all results 2016 01:50 [id number] Comment: Critical Result(s) called to [place] at 11/2016 18:49 by Jacinto Mann [place]. Read back OK.CARDIAC ENZYMES Most recent to oldest 1 2 3 [Reference Range]: Troponin-I [0.00-0.40 ng/mL] <0.02 ng/mL <0.02 ng/mL <0.02 ng/mL (04/14/16 1:17 AM) (04/13/16 10:06 PM) (04/13/16 6:20 PM) SPECIAL CHEMISTRY Most recent to oldest [Reference Range]: 1 2 3 Hgb A1C [<=5.6 %] 10.7 % *HI* (04/14/16 1:17 AM) URINE AND STOOL Most recent to oldest [Reference Range]: 1 2 3 UA Turbidity [Clear] Clear (04/13/16 6:01 PM) UA Color [Yellow] Light Yellow *NA* (04/13/16 6:01 PM) UA pH [5.0-8.0] 6.0 (04/13/16 6:01 PM) UA Spec Grav [<=1.030] 1.026 (04/13/16 6:01 PM) UA Glucose [Negative mg/dL] >=1000 mg/dL *ABN* (04/13/16 6:01 PM) UA Blood [Negative] Negative (04/13/16 6:01 PM) UA Ketones [Negative mg/dL] Negative mg/dL *NA* (04/13/16 6:01 PM) UA Protein [Negative mg/dL] Negative mg/dL (04/13/16 6:01 PM) UA Urobilinogen [0.1-1.0 mg/dL] <=1.0 mg/dL *NA* (04/13/16 6:01 PM) UA Bili [Negative] Negative *NA* (04/13/16 6:01 PM) UA Leuk Est [Negative] Negative (04/13/16 6:01 PM) UA Nitrite [Negative] Negative (04/13/16 6:01 PM) UA RBC [0-2 /HPF] <1 /HPF (04/13/16 6:01 PM) UA Sq Epi [Few /LPF] Occasional /LPF *NA* (04/13/16 6:01 PM) UA Mucus [None Seen /LPF] Few /LPF *NA* (04/13/16 6:01 PM) HEMATOLOGY Most recent to oldest [Reference Range]: 1 2 3 WBC [3.7-10.4 K/CMM] 7.6 K/CMM 8.6 K/CMM (04/14/16 1:17 AM) (04/13/16 6:20 PM) RBC [4.70-6.10 M/CMM] 4.33 M/CMM 4.64 M/CMM *LOW* *LOW* (04/14/16 1:17 AM) (04/13/16 6:20 PM) Hgb [14.0-18.0 g/dL] 13.3 g/dL 14.1 g/dL *LOW* (04/13/16 6:20 PM) (04/14/16 1:17 AM) Hct [42.0-54.0 %] 38.4 % 41.2 % *LOW* *LOW* (04/14/16 1:17 AM) (04/13/16 6:20 PM) MCV [80.0-94.0 fL] 88.8 fL 88.8 fL (04/14/16 1:17 AM) (04/13/16 6:20 PM) MCH [27.0-31.0 pg] 30.6 pg 30.4 pg (04/14/16 1:17 AM) (04/13/16 6:20 PM) MCHC [32.0-36.0 g/dL] 34.5 g/dL 34.3 g/dL (04/14/16 1:17 AM) (04/13/16 6:20 PM) RDW [11.5-14.5 %] 12.8 % 13.5 % (04/14/16 1:17 AM) (04/13/16 6:20 PM) Platelet [133-450 K/CMM] 152 K/CMM 183 K/CMM (04/14/16 1:17 AM) (04/13/16 6:20 PM) MPV [7.4-10.4 fL] 10.4 fL 10.0 fL (04/14/16 1:17 AM) (04/13/16 6:20 PM) Segs [45.0-75.0 %] 46.0 % 55.1 % (04/14/16 1:17 AM) (04/13/16 6:20 PM) Lymphocytes [20.0-40.0 %] 43.4 % 36.5 % *HI* (04/13/16 6:20 PM) (04/14/16 1:17 AM) Monocytes [2.0-12.0 %] 6.0 % 5.4 % (04/14/16 1:17 AM) (04/13/16 6:20 PM) Eosinophils [0.0-4.0 %] 3.0 % 2.0 % (04/14/16 1:17 AM) (04/13/16 6:20 PM) Basophils [0.0-1.0 %] 1.6 % 1.0 % *HI* (04/13/16 6:20 PM) (04/14/16 1:17 AM) Segs-Bands # [1.5-8.1 K/CMM] 3.5 K/CMM 4.8 K/CMM (04/14/16 1:17 AM) (04/13/16 6:20 PM) Lymphocytes # [1.0-5.5 K/CMM] 3.3 K/CMM 3.2 K/CMM (04/14/16 1:17 AM) (04/13/16 6:20 PM) Monocytes # [0.0-0.8 K/CMM] 0.5 K/CMM 0.5 K/CMM (04/14/16 1:17 AM) (04/13/16 6:20 PM) Eosinophils # [0.0-0.5 K/CMM] 0.2 K/CMM 0.2 K/CMM (04/14/16 1:17 AM) (04/13/16 6:20 PM) Basophils # [0.0-0.2 K/CMM] 0.1 K/CMM 0.1 K/CMM (04/14/16 1:17 AM) (04/13/16 6:20 PM) RBC Morph Normal (04/14/16 1:17 AM) Plt Morph Clumped (04/14/16 1:17 AM) PT [12.0-14.7 seconds] 11.0 seconds *LOW* (04/13/16 6:20 PM) INR [0.85-1.17] 0.78 *LOW* (04/13/16 6:20 PM) Immunizations Given and Recorded Vaccine Date Status Refusal Reason influenza virus vaccine, inactivated 04/14/16 Given pneumococcal 23-valent vaccine 04/14/16 Given Not Given Vaccine Date Status Refusal Reason influenza virus vaccine, inactivated 04/14/16 Not Given Patient Refuses pneumococcal 23-valent vaccine 04/14/16 Not Given Patient Refuses Procedures Procedure Date Related Diagnosis Body Site Arthroscopy of knee Cholecystectomy Fusion of lumbar spine Social History Social History Type Response Alcohol Current, Frequency: 3-5 times per week. Alcohol use interferes with work or home: No. Drinks more than intended: No. Others hurt by drinking: No. Ready to change: No. Household alcohol concerns: No. Smoking Status Former smoker; Type: Cigarettes; Exposure to Tobacco Smoke None ; Cigarette Smoking Last 365 Days Yes; Reg Smoking Cessation Counseling No Assessment and Plan Extracted from: Title: Clinical Document Author: Ute Lisa MD Date: 04/14/16 Hospitalist Note: Attending: Hanna Hackett MD Service: Internal Medicine Code status: None Specified=FULL CODE Reason for Admission: HYPERGLYCEMIA, DEHYDRATION Working DRG: None Documented Isolation: None Documented Consulting Physicians: Hanna Hackett MD Office: Service: Medicine Allergies (1) Active Reaction NKDA None documented Subjective: Afeb. No N/V currently. Ate part of breakfast. Blood gluc this AM at 7:30 AM was in 300's. C/O bad H/A currently. Does not have hx of H/A's. Says he has had episodes of intermittent left-sided chest pressure that last about a min or two. Says he had a neg angiogram approx 6 mos ago. Scheduled Meds (3): 04/14/16 influenza virus vaccine, inactivated 0.5 mL IM Daily 04/13/16 insulin detemir 10 unit SUB-Q Q12H 04/14/16 pneumococcal 23-valent vaccine (Pneumovax 23) 0.5 mL IM Daily Objective: Vital Signs (last 24 hrs) Last Charted Temp Oral 97.7 DegF (APR 14 03:54) Heart Rate Peripheral L 59bpm (APR 14 03:54) Resp Rate 18 BRMIN (APR 14 03:54) SBP 123 mmHg (APR 14 03:54) DBP 70 mmHg (APR 14 03:54) SpO2 94 % (APR 14 03:54) Weight 105.45 kg (APR 13 16:11) Height 185.42 cm (APR 13 16:11) BMI 30.67 (APR 13 16:11) Date Wt(kg) Wt(lb) Ht(cm) Ht(in) Method 04/13 (initial) 105.45 232.00 Measured 04/13 185.42 73.00 Stated Physical Exam: Gen: Awake/alert; NAD Neuro: no nuchal rigidity; AAO x 3 CV: Normal rate Chest wall: no reproducible tenderness Lung: CTA Abd: soft; nd; nt; + BS Ext; no edema; warm extremities Labs (Last four charted values) WBC 7.6 (APR 14) 8.6 (APR 13) Hgb L 13.3 (APR 14) 14.1 (APR 13) Hct L 38.4 (APR 14) L 41.2 (APR 13) Plt 152 (APR 14) 183 (APR 13) Na 139 (APR 14) L 133 (APR 13) K L 3.4 (APR 14) 4.3 (APR 13) CO2 26 (APR 14) 25 (APR 13) Cl 106 (APR 14) 100 (APR 13) Cr 0.68 (APR 14) 0.94 (APR 13) BUN 11 (APR 14) 13 (APR 13) Glucose Random H 199 (APR 14) C 400 (APR 13) Mg 1.8 (APR 14) Phos 3.0 (APR 14) Ca L 7.8 (APR 14) 8.9 (APR 13) PT L 11.0 (APR 13) INR L 0.78 (APR 13) Troponin <0.02 (APR 14) <0.02 (APR 13) <0.02 (APR 13) Assessment: 1. 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 He is currently on Levemir 10 units Q12H w/ some decrease in BG to the 200-300's. 2. Volume depletion secondary from hyperosmolar state secondary from poorly controlled diabetes mellitus type 2. 3. H/A-no other accompanying symptoms. ? dehydration-related. PRN pain meds 4. Intermittent chest pressure-lasting only approx a minute or two. Not having any currently. Not pleuritic in nature. No SOB or hypoxia. Pt states had neg angiogram done approx 6 mos ago. Trop neg x 3. Will check EKG. 5. Mild elevation in TSH-Free T4 is normal at this time. TSH/Free T4 will need to be monitored as an outpatient, & tx may be required in future. 6. Hypokalemia-PO repletion. Plan: Continue IV hydration currently. Blood glucoses decreased since yesterday. Will plan on d/c this afternoon on Levemir 14 units Q12H plus PO metformin 500 mg BID. Pt has appt with a new PCP, Dr. Sotelo, tomorrow AM and needs to keep this appt. Will order diabetic education for insulin self-administration and nutrition. F/u EKG result, but neg trop x 3 and recent neg angiogram makes acute cardiac issue unlikely. Plan d/w'ed pt and his .
--- OUTSIDE RECORDS SUMMARY | 2017-10-19 17:22 | XMS REPORT ---
[...] Start End Date Status Dosage System Date [place] [facility] 66762028292 5-325 MG Orally Active 1 tablet every 6 hrs as needed Metformin HCl [facility] [id number] 1000 MG Orally Active 1 tablet Once a day with a meal Results No Known Results Summary Purpose eClinicalWorks Submission
[2017-10-19] MEDS ORDERED: LIDOCAINE 1% MPF 5 ML VIAL ONE (18:11)
[2017-10-19 18:43] LABS: Absolute Lymphocytes (CBC) 3.3 K/uL (0.7-4.9); Absolute Monocytes 0.7 K/uL (0.1-1.3); Absolute Neutrophil 5.1 K/uL (1.8-8.0); Eosinophils % 3.3 % (0-4.4); Lymphocytes % 35.2 % (15.3-44.8); MCH 31.5 pg (27.0-35.0); MCV 90.5 fL (80-100); MPV 9.9 fL (7.6-11.3); RBC Red Blood Cell Count 4.42 M/uL (4.33-5.43)
--- NOTE | 2017-10-19 19:07 | RAD REPORT ---
EXAM DESCRIPTION: RAD - Hand Right 3 View - 10/19/2017 6:49 pm CLINICAL HISTORY: Right middle finger or pain, possible gout COMPARISON: None. FINDINGS: No fracture is identified. There is no dislocation or periosteal reaction noted. No measu rable IP joint space narrowing. No abnormal spurring or erosive component. No suspicious finding at t he MCP joints. Patient does have mild to moderate degenerative change at the first carpal - metacarpa l articulation. In the periarticular soft tissues there is no mass or calcification. No significant soft tissue findi ng seen. IMPRESSION: Negative right hand examination for acute or significant bone, joint or soft tissue find ing.
[2017-10-19 19:08] LABS: ALT/SGPT 47 U/L (12-78); AST/SGOT 26 U/L (15-37); Albumin 3.8 g/dL (3.4-5.0); Alkaline Phosphatase 79 U/L (45-117); BUN Blood Urea Nitrogen 13 mg/dL (7-18); Bicarbonate 26 mmol/L (21-32); Bilirubin Total 0.5 mg/dL (0.2-1.0); Glucose Level 221 mg/dL (74-106); Protein, Total 7.6 g/dL (6.4-8.2); Sodium Level 139 mmol/L (136-145); Uric Acid 5.2 mg/dL (3.5-7.2)
--- NOTE | 2017-10-19 19:45 | EDPHYS ---
Physician Documentation [facility] Name: Art Anand Age: 62 yrs Sex: Male : 1955 Arrival Date: 10/19/2017 Time: 17:21 Bed 18 Private MD: Carrillo Eastman ED Physician Benigno Jimenez HPI: 10/19 17:49 This 62 yrs old Male presents to ER via Ambulatory with complaints of Right pm1 middle finger pain. 17:49 The patient or guardian reports pain. The complaints affect the dorsal aspect of distal pm1 phalanx of right middle finger. Context: The problem was sustained at an unknown location, resulted from an unknown cause. Onset: The symptoms/episode began/occurred 1 week(s) ago. Modifying factors: The symptoms are alleviated by nothing, the symptoms are aggravated by nothing. Associated signs and symptoms: Pertinent negatives: cyanosis distally, decreased sensation distally, fever, nausea, numbness distally, tingling distally, vomiting. Severity of symptoms: in the emergency department the symptoms are actually worse. The patient has not experienced similar symptoms in the past. The patient has been recently seen by a physician: the patient's primary care provider, Dr. Eastman earlier today, Sent here by Dr. Eastman for evaluation of right middle finger. Historical: - Allergies: 17:33 No Known Allergies; aa5 - PMHx: 17:33 Diabetes - NIDDM; HEP C; Gout; aa5 - PSHx: 17:33 back; shoulder; knees; Cholecystectomy; aa5 - Immunization history:: Adult Immunizations unknown. - Social history:: Smoking status: Patient uses tobacco products, smokes one-half pack cigarettes per day. - Ebola Screening: : No symptoms or risks identified at this time. ROS: 17:49 Constitutional: Negative for fever, chills, and weight loss, Eyes: Negative for injury, pm1 pain, redness, and discharge, ENT: Negative for injury, pain, and discharge, Neck: Negative for injury, pain, and swelling, Cardiovascular: Negative for chest pain, palpitations, and edema, Respiratory: Negative for shortness of breath, cough, wheezing, and pleuritic chest pain, Abdomen/GI: Negative for abdominal pain, nausea, vomiting, diarrhea, and constipation, Back: Negative for injury and pain, : Negative for injury, bleeding, discharge, and swelling. 17:49 Neuro: Negative for headache, weakness, numbness, tingling, and seizure. 17:49 MS/extremity: Positive for pain, of the dorsal aspect of distal phalanx of right middle finger. 17:49 Skin: Positive for abscess, of the dorsal aspect of distal phalanx of right middle finger, Negative for cellulitis, erythema, laceration(s), puncture. Exam: 17:49 Constitutional: This is a well developed, well nourished patient who is awake, alert, pm1 and in no acute distress. Head/Face: Normocephalic, atraumatic. Chest/axilla: Normal chest wall appearance and motion. Nontender with no deformity. No lesions are appreciated. Cardiovascular: Regular rate and rhythm with a normal S1 and S2. No gallops, murmurs, or rubs. Normal PMI, no JVD. No pulse deficits. Respiratory: Lungs have equal breath sounds bilaterally, clear to auscultation and percussion. No rales, rhonchi or wheezes noted. No increased work of breathing, no retractions or nasal flaring. Abdomen/GI: Soft, non-tender, with normal bowel sounds. No distension or tympany. No guarding or rebound. No evidence of tenderness throughout. Back: No spinal tenderness. No costovertebral tenderness. Full range of motion. 17:49 Musculoskeletal/extremity: Circulation is intact in all extremities. 3rd right digit: No tenderness over flexor tendon sheath, no fusiform swelling present, no severe pain with passive extension of finger, no flexed posture. 17:49 Skin: Appearance: normal except for affected area, abscess, that is small, of the lateral dorsal aspect of distal phalanx of right middle finger, with fluctuance, with pointing, no surrounding cellulitis present. Vital Signs: 17:33 BP 140 / 83; Pulse 62; Resp 18 S; Temp 98.0(TE); Pulse Ox 97% on R/A; Weight 114.76 kg aa5 (R); Height 6 ft. 1 in. (185.42 cm) (R); Pain 8/10; 19:55 BP 132 / 78; Pulse 60; Resp 18; Temp 98.2(O); Pulse Ox 98% on R/A; Pain 3/10; ea 17:33 Body Mass Index 33.38 (114.76 kg, 185.42 cm) aa5 Procedures: 19:45 I \T\ D: Incision and drainage was performed for an abscess of the right lateral dorsal pm1 aspect of distal phalanx of right middle finger Prepped with Betadine, Anesthetized with 4 ml's 1% Lidocaine. digital block. Incised with #11 blade. Drained small amount purulent fluid. Cultures obtained. Dressing: sterile 4x4 gauze, the patient tolerated the procedure well. MDM: 17:46 Patient medically screened. pm1 17:49 Physician consultation: Carrillo Eastman MD was called at 17:49, was contacted at 17:49, pm1 regarding patient's condition, ER plan of care. Requested basic labs with uric acid. I told him I would drain the abscess and treat with empirical antibiotics for paronychia. 19:43 Data reviewed: vital signs. Data interpreted: Pulse oximetry: on room air is 97 %. pm1 Interpretation: normal. Counseling: I had a detailed discussion with the patient and/or guardian regarding: the historical points, exam findings, and any diagnostic results supporting the discharge/admit diagnosis, lab results, radiology results, the need for outpatient follow up, to return to the emergency department if symptoms worsen or persist or if there are any questions or concerns that arise at home. 19:48 ED course: Pending wound culture results in two days. Will start on empirical pm1 antibiotics. Patient reports some recent saltwater fishing. Will start on doxycycline for vibrio and MRSA coverage. 19:53 Physician consultation: Carrillo Eastman MD was called at 19:53, was contacted at 19:53, pm1 regarding patient's condition, lab results and x-ray results, Will follow up with patient. 10/19 17:56 Order name: Uric Acid; Complete Time: 19:22 pm1 10/19 17:56 Order name: CBC with Diff; Complete Time: 18:49 pm1 10/19 17:56 Order name: Hand Right 3 View XRAY; Complete Time: 19:22 pm1 10/19 17:56 Order name: CMP; Complete Time: 19:22 pm1 10/19 20:39 Order name: Wound Culture pm1 10/19 17:56 Order name: IV Saline Lock; Complete Time: 18:42 pm1 Administered Medications: 19:29 Drug: Lidocaine (1 %) 5 ml Volume: 5 ml; Route: Infiltration; ea 19:50 CANCELLED (Physician Discretion; change to doxy): Bactrim (160 mg-800 mg (DS) 1 tablet pm1 PO once 20:00 Drug: Tylenol #3 (300 mg-30 mg) 1 tablet Route: PO; ea 20:00 Drug: Doxycycline 100 mg Route: PO; ea Disposition: 10/19/17 19:45 Discharged to Home. Impression: Paronychia of right middle finger. - Condition is Stable. - Discharge Instructions: Paronychia. - Prescriptions for Tylenol- Codeine #3 300-30 mg Oral Tablet - take 1 tablet by ORAL route every 6 hours As needed; 15 tablet. Doxycycline Hyclate 100 mg Oral Tablet - take 1 tablet by ORAL route every 12 hours; 20 tablet. - Medication Reconciliation Form, Thank You Letter, Antibiotic Education, Prescription Opioid Use form. - Follow up: Emergency Department; When: As needed; Reason: Worsening of condition. Follow up: Carrillo Eastman MD; When: 2 - 3 days; Reason: Recheck today's complaints, Continuance of care, Re-evaluation by your physician. Follow up: Nick Lay MD; When: 2 - 3 days; Reason: Recheck today's complaints, Continuance of care, Re-evaluation by your physician. - Problem is new. - Symptoms have improved. Addendum: 10/26/2017 15:12 Co-signature as Attending Physician, Benigno Jimenez MD I agree with the assessment and c davidson plan of care. Signatures: Dispatcher [employer] [facility] Oralia Purdy 2 Benigno Jimenez MD MD cha Calderon, Audri, RN RN aa5 Jerry Moraes, SERJIO PICKING SUPERVISOR pm1 Victoria Dominique RN RN ea Corrections: (The following items were deleted from the chart) 10/19 19:50 19:47 Bactrim (160 mg-800 mg (DS) 1 tablet PO once ordered. pm1 pm1 20:17 19:45 10/19/2017 19:45 Discharged to Home. Impression: Paronychia of right middle ea finger. Condition is Stable. Forms are Medication Reconciliation Form, Thank You Letter, Antibiotic Education, Prescription Opioid Use. Follow up: Emergency Department; When: As needed; Reason: Worsening of condition. Follow up: Carrillo Eastman; When: 2 - 3 days; Reason: Recheck today's complaints, Continuance of care, Re-evaluation by your physician. Follow up: Nick Lay; When: 2 - 3 days; Reason: Recheck today's complaints, Continuance of care, Re-evaluation by your physician. Problem is new. Symptoms have improved. pm1 20:40 20:17 10/19/2017 19:45 Discharged to Home. Impression: Paronychia of right middle rg2 finger. Condition is Stable. Discharge Instructions: Paronychia. Prescriptions for Tylenol-Codeine #3 300-30 mg Oral Tablet - take 1 tablet by ORAL route every 6 hours As needed; 15 tablet, Doxycycline Hyclate 100 mg Oral Tablet - take 1 tablet by ORAL route every 12 hours; 20 tablet. and Forms are Medication Reconciliation Form, Thank You Letter, Antibiotic Education, Prescription Opioid Use. Follow up: Emergency Department; When: As needed; Reason: Worsening of condition. Follow up: Carrillo Eastman; When: 2 - 3 days; Reason: Recheck today's complaints, Continuance of care, Re-evaluation by your physician. Follow up: Nick Lay; When: 2 - 3 days; Reason: Recheck today's complaints, Continuance of care, Re-evaluation by your physician. Problem is new. Symptoms have improved. ea
--- NOTE | 2017-10-19 19:45 | ER ---
Nurse's Notes [facility] Name: Art Anand Age: 62 yrs Sex: Male : 1955 Arrival Date: 10/19/2017 Time: 17:21 Bed 18 Private MD: Carrillo Eastman Diagnosis: Paronychia of right middle finger Presentation: 10/19 17:32 Presenting complaint: Patient states: "my right middle finger has been hurting and Dr. bienvenido Eastman wanted me to come to the ER for gout". Transition of care: patient was not received from another setting of care. Onset of symptoms was October 2017. Risk Assessment: Do you want to hurt yourself or someone else? Patient reports no desire to harm self or others. Initial Sepsis Screen: Does the patient meet any 2 criteria? No. Patient's initial sepsis screen is negative. Does the patient have a suspected source of infection? No. Patient's initial sepsis screen is negative. Care prior to arrival: None. 17:32 Method Of Arrival: Ambulatory aa5 17:32 Acuity: CAN 3 aa5 Historical: - Allergies: 17:33 No Known Allergies; aa5 - PMHx: 17:33 Diabetes - NIDDM; HEP C; Gout; aa5 - PSHx: 17:33 back; shoulder; knees; Cholecystectomy; aa5 - Immunization history:: Adult Immunizations unknown. - Social history:: Smoking status: Patient uses tobacco products, smokes one-half pack cigarettes per day. - Ebola Screening: : No symptoms or risks identified at this time. Screenin:10 Abuse screen: Denies threats or abuse. Denies injuries from another. Nutritional jl7 screening: No deficits noted. Tuberculosis screening: No symptoms or risk factors identified. Fall Risk IV access (20 points). Assessment: 18:10 General: Appears in no apparent distress. uncomfortable, Behavior is calm, cooperative, jl7 appropriate for age. Pain: Complains of pain in palmar aspect of distal phalanx of right middle finger Pain does not radiate. Pain currently is 10 out of 10 on a pain scale. Quality of pain is described as aching, Pain began 1 day ago. Is continuous. Neuro: Level of Consciousness is awake, alert, obeys commands, Oriented to person, place, time, situation. Cardiovascular: Patient's skin is warm and dry. Respiratory: Airway is patent Respiratory effort is even, unlabored, Respiratory pattern is regular, symmetrical. GI: No signs and/or symptoms were reported involving the gastrointestinal system. : No signs and/or symptoms were reported regarding the genitourinary system. EENT: No signs and/or symptoms were reported regarding the EENT system. Derm: Skin is pink, warm \\T\\ dry. Musculoskeletal: No signs and/or symptoms reported regarding the musculoskeletal system. 19:30 General: Appears in no apparent distress. Behavior is calm, cooperative, appropriate ea for age. Pain: Complains of pain in palmar aspect of distal phalanx of right middle finger Pain does not radiate. Pain currently is 9 out of 10 on a pain scale. Quality of pain is described as aching, Pain began 1 day ago. Is continuous. Neuro: Level of Consciousness is awake, alert, obeys commands, Oriented to person, place, time, situation. Cardiovascular: Patient's skin is warm and dry. Respiratory: Airway is patent Respiratory effort is even, unlabored, Respiratory pattern is regular, symmetrical. GI: No signs and/or symptoms were reported involving the gastrointestinal system. : No signs and/or symptoms were reported regarding the genitourinary system. EENT: No signs and/or symptoms were reported regarding the EENT system. Derm: Skin is pink, warm \\T\\ dry. Musculoskeletal: Circulation, motion, and sensation intact. 20:17 Reassessment: Patient and/or family updated on plan of care and expected duration. Pain ea level reassessed. Patient is alert, oriented x 3, equal unlabored respirations, skin warm/dry/pink. Discharge instructions given to patient, verbalized the understanding of instruction. Vital Signs: 17:33 BP 140 / 83; Pulse 62; Resp 18 S; Temp 98.0(TE); Pulse Ox 97% on R/A; Weight 114.76 kg aa5 (R); Height 6 ft. 1 in. (185.42 cm) (R); Pain 8/10; 19:55 BP 132 / 78; Pulse 60; Resp 18; Temp 98.2(O); Pulse Ox 98% on R/A; Pain 3/10; ea 17:33 Body Mass Index 33.38 (114.76 kg, 185.42 cm) aa5 ED Course: 17:21 Patient arrived in ED. mr 17:21 Carrillo Eastman MD is Private Physician. mr 17:33 Triage completed. aa5 17:33 Arm band placed on. aa5 17:45 Jerry Moraes NP is PHCP. pm1 17:45 Benigno Jimenez MD is Attending Physician. pm1 18:00 Lashay Calderon RN is Primary Nurse. jl7 18:10 Patient has correct armband on for positive identification. Bed in low position. Call jl7 light in reach. Side rails up X 1. Pulse ox on. NIBP on. 18:36 Initial lab(s) drawn, by me, sent to lab. Inserted saline lock: 20 gauge in left iw forearm, using aseptic technique. Blood collected. 18:49 Hand Right 3 View XRAY In Process Unspecified. EDMS 19:14 Report given to CRISTIANA Kessler. jl7 19:40 Primary Nurse role handed off by Lashay Calderon RN rg2 19:43 Carrillo Eastman MD is Referral Physician. pm1 19:44 Nick Lay MD is Referral Physician. pm1 19:53 Victoria Dominique RN is Primary Nurse. ea 20:10 No provider procedures requiring assistance completed. IV discontinued, intact, ea bleeding controlled, No redness/swelling at site. Pressure dressing applied. 20:39 Primary Nurse role handed off by Victoria Dominique RN rg2 Administered Medications: 19:29 Drug: Lidocaine (1 %) 5 ml Volume: 5 ml; Route: Infiltration; ea 19:50 CANCELLED (Physician Discretion; change to doxy): Bactrim (160 mg-800 mg (DS) 1 tablet pm1 PO once 20:00 Drug: Tylenol #3 (300 mg-30 mg) 1 tablet Route: PO; ea 20:00 Drug: Doxycycline 100 mg Route: PO; ea Outcome: 19:45 Discharge ordered by . pm1 20:17 Discharged to home ambulatory, with significant other. ea 20:17 Condition: improved 20:17 Discharge instructions given to patient, Instructed on discharge instructions, follow up and referral plans. medication usage, Demonstrated understanding of instructions, follow-up care, medications, Prescriptions given X 2. 20:17 Patient left the ED. ea 20:40 Patient left the ED. rg2 Addendum: 10/22/2017 11:07 Addendum: Culture Results: Positive wound culture. No further action required. Bacteria h b sensitive to prescribed antibiotic. Signatures: Dispatcher [employer] Oralia Weinstein rg2 Cassie Alonso mr Shirley Morris, RN RN iw Cori West, RN RN aa5 Jerry Moraes, SUPERVISOR TYPE PHOTOGRAPHY SUPERVISOR TYPE PHOTOGRAPHY pm1 Carmelina Kumari, RN RN Lashay Fry, RN RN jl7 Victoria Dominique RN RN ea
[2017-10-19] MEDS ORDERED: DOXYCYCLINE 100 MG CAP PO ONE (19:59)
[2017-10-19] MEDS ORDERED: CODEINE 30MG/APAP 300MG TAB ONE (19:59)
== END 2017-10-19 20:40 | disposition home or self-care (01) ==
LOC: ER 17:18
PROC: 0H9FXZZ Drainage of Right Hand Skin, External Approach (ICD-10-PCS; principal; 2017-10-19)
DX: L03.011 Cellulitis of right finger (principal); E11.9 Type 2 diabetes mellitus without complications; B19.20 Unspecified viral hepatitis C without hepatic coma; F17.210 Nicotine dependence, cigarettes, uncomplicated
CPT/HCPCS: 36415; 80053; 84550; 85025; 87070; 87077; 87186; 87205; 99284